=== PATIENT | female | born 1945 | race Caucasian/White ===

== ENCOUNTER 2021-08-06 08:24 | Inpatient (IN) | payer MEDICARE, SELFPAY ==
[2021-08-06] VITALS (11 sets, daily range): BP systolic 91–130; BP diastolic 50–67; PULSE 83–96; RESP 16–21; TEMP 36.2–36.6; O2SAT 91–100; BMI 19.1
--- NOTE | ~2021-08-06 | CT_ITS ---
EXAMINATION: CT chest abdomen pelvis w con EXAM DATE: 08/10/2021 09:19 INDICATION: Abnormal CT carotid brain findings including hypothalamic/optic chiasm brain mass, right tongue base mass, left lower lobe 1.3 cm nodule, necrotic thoracic lymphadenopathy and lower IJ lymph adenopathy, right ear lobe cystic mass. TECHNIQUE: Spiral CT of the chest, abdomen and pelvis was performed following intravenous injection o f 100 mL Omnipaque 350. Axial, coronal and sagittal images chest, abdomen and pelvis were reviewed. Coronal maximum intensity pixel images of chest reviewed. The dose-length product (DLP) for this ex amination was 348.04 mGy-cm. The exposure was tailored according to patient size (auto mA exposure c ontrol), and iterative reconstruction (ASIR) was used as additional dose reduction technique. There is no prior study for comparison. FINDINGS: CHEST: There is severe emphysema. There is a spiculated RIGHT upper lobe anterior segmental 6 mm nodu le. There is a 1.3 cm LEFT lower lobe superior segment pleural based lung nodule with spiculations, a ppearance most consistent with primary lung cancer. The 1.3 cm nodule abuts the descending thoracic a anuel, would not be candidate for percutaneous biopsy, and the 6 mm nodule is too small for biopsy. Th ere are numerous necrotic appearing enlarged lower internal jugular chain lymph nodes, mediastinal an d bilateral hilar lymph nodes consistent with metastatic disease. Similar-appearing cystic region in the right axilla could be lymph node or fluid within the shoulder joint. There are small bilateral pl eural effusions with adjacent subsegmental atelectasis. Some right lower lobe segmental endobronchial debris. No central pulmonary emboli. Hyperinflation. Normal heart size. ABDOMEN PELVIS: There is left adrenal mass probably metastatic disease measuring 2.0 cm. Ill-defined mesenteric and retroperitoneal fat planes, and suspicion of upper retroperitoneal lymphadenopathy. Al so mesenteric lymph nodes some of which are mildly enlarged and mildly dense. Liver, gallbladder, kid neys and spleen are unremarkable. No free intraperitoneal gas, small bowel or colonic obstruction. Th ere is colonic, rectal fluid. Correlate for diarrhea. Probable hysterectomy. Contrast within the blad christ. There are no osteoblastic or osteolytic lesions identified. IMPRESSION: 1. Right upper lobe 0.6 cm and left lower lobe 1.3 cm spiculated nodules. Either or both could be pr imary lung cancers. 2. Extensive mediastinal, hilar, lower internal jugular chain and possibly right axillary necrotic l ymphadenopathy. 3. Severe emphysema. Moderate hyperinflation. 4. Small pleural effusions, adjacent subsegmental atelectasis. 5. Small to moderate pericardial effusion. 6. Upper retroperitoneal, mesenteric lymphadenopathy. 7. Left adrenal mass. 8. Rectal fluid, diarrhea. 9. Right tongue base mass on yesterday's CT neck. Reviewed, dictated and finalized at location A. AINABLE AGRICULTURE SPECIALIST IMPRESSION: 1. Right upper lobe 0.6 cm and left lower lobe 1.3 cm spiculated nodules. Eith er or both could be primary lung cancers. 2. Extensive mediastinal, hilar, lower internal jugular chain and possibly rig ht axillary necrotic lymphadenopathy. 3. Severe emphysema. Moderate hyperinflation. 4. Small pleural effusions, adjacent subsegmental atelectasis. 5. Small to moderate pericardial effusion. 6. Upper retroperitoneal, mesenteric lymphadenopathy. 7. Left adrenal mass. 8. Rectal fluid, diarrhea. 9. Right tongue base mass on yesterday's CT neck.
--- NOTE | ~2021-08-06 | XR_ITS ---
EXAMINATION: XR chest 1V portable INDICATION: Cough, hypotension TECHNIQUE: Portable AP chest at 0844 hours COMPARISON: None available FINDINGS: There are minimal airspace opacities of the lung bases. A small right pleural effusion is p resent. There is no pneumothorax. The cardiomediastinal silhouette is normal. IMPRESSION: 1. Small right pleural effusion. 2. Bibasilar airspace opacities, consistent with atelectasis versus pneumonia. Reviewed, dictated and finalized at location A. ESTATE SALES ASSOCIATE
--- NOTE | ~2021-08-06 | US_ITS ---
EXAMINATION: US biopsy lymph node DATE: 08/11/2021 10:16 INDICATION: Right supraclavicular lymphadenopathy. TECHNIQUE: The procedure including the risks, benefits, and alternatives was discussed with the patie nt. Risks discussed included bleeding and infection. The patient understood the risks and agreed to p roceed. The skin overlying the right neck was prepped and draped in usual sterile fashion. Anestheti c was administered with 1% lidocaine subcutaneously. An 18 gauge core biopsy needle was then used to obtain 3 core biopsy specimens under continuous sonographic guidance. The entry site was cleaned and dressed. There were no immediate complications. FINDINGS: Ultrasound images demonstrate the needle in an enlarged right supraclavicular lymph node. IMPRESSION: 1. Ultrasound-guided core needle biopsy of an enlarged right supraclavicular lymph node. Reviewed, dictated and finalized at location A. F SERVICE DISPATCHER IMPRESSION: 1. Ultrasound-guided core needle biopsy of an enlarged right supraclavicular ly mph node.
--- NOTE | ~2021-08-06 | CT_ITS ---
EXAMINATION: CTA brain carotid EXAM DATE: 08/09/2021 14:41 INDICATION: Vision loss TECHNIQUE: Noncontrast head CT. Spiral CTA of the carotid arteries was performed with intravenous i njection 100 cc of Omnipaque 350. Axial, coronal, sagittal reformatted images reviewed. Additional r eformatted images created on dedicated 3-D workstation. NASCET comparable standard used to assess th e degree of arterial stenosis. Spiral CT angiogram cerebral arteries performed with the same intrave nous injection of contrast. Source images of the brain CTA transferred to dedicated workstation for 3 -D rotational image creation. Coronal, sagittal maximum intensity pixel images also reviewed. The d ose-length product (DLP) for this examination was 1667.68 mGy-cm. The exposure was tailored accordi ng to patient size, and iterative reconstruction (ASIR) was used as additional dose reduction techniq ue. FINDINGS: Low-density necrotic appearing bilateral hilar and mediastinal lymphadenopathy most likel y metastatic disease. Necrotic bilateral supraclavicular, lower internal jugular chain necrotic lymp hadenopathy. There is fluid density mass along the anterior aspect of the right ear lobe measuring 1. 6 cm there is enhancing mass in the midline suprasellar region probably involving the optic chiasm, m easuring about 1.6 cm. This is probably some kind of malignancy, density consistent with hypervascula r soft tissue rather than contrast within an aneurysm. This is extending posteriorly and touching the basilar tip. There is nonspecific symmetric low density within the internal capsular bilaterally, mo st likely something reactive from this suspected mass. Differential diagnosis includes metastatic dis ease, astrocytoma, embryonal carcinoma, teratoma, craniopharyngioma (doesn't appear to arise from torie la turcica). Probable small to moderate bilateral pleural effusions. There is moderate emphysema. There is mild to moderate bilateral carotid bulb arteriosclerosis with 0% stenosis bilaterally. The left vertebral ar adele is dominant. No vertebral or carotid dissection. Bilateral carotid siphon arterial sclerosis wit hout stenosis. No cerebral artery aneurysm suspected. No sagittal sinus thrombosis. Bilateral catarac t surgery. IMPRESSION: 1. Mediastinal, hilar, supraclavicular necrotic lymphadenopathy most likely metastatic disease. If t here is no known diagnosis, CT chest abdomen and pelvis with contrast is indicated. Cystic mass anter ior aspect right lobe. CT chest abdomen pelvis recommended. 2. 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 3. Symmetric bilateral internal capsule hypodensity probably reactive from the suprasellar mass abov e. 4. Bilateral carotid bulb 0% stenosis. Reviewed, dictated and finalized at location A. INESS PARAPROFESSIONAL IMPRESSION: 1. Mediastinal, hilar, supraclavicular necrotic lymphadenopathy most likely me tastatic disease. If there is no known diagnosis, CT chest abdomen and pelvis w ith contrast is indicated. Cystic mass anterior aspect right lobe. CT chest abd omen pelvis recommended. 2. 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 3. Symmetric bilateral internal capsule hypodensity probably reactive from the suprasellar mass above. 4. Bilateral carotid bulb 0% stenosis.
--- NOTE | 2021-08-06 08:33 | ECG_ITS ---
Measurements Intervals [place] Rate: 85 P: 60 [place]: 194 QRS: 34 QRSD: 98 T: 60 QT: 402 QTc: 480 Interpretive Statements SINUS RHYTHM LOW QRS VOLTAGE IN LIMB LEADS CANNOT RULE OUT SEPTAL INFARCT, AGE INDETERMINATE BORDERLINE ST-T WAVE ABNORMALITY- DIFFUSE LEADS ABNORMAL ECG Electronically Signed On 08-06-2021 8:58:46 MAGAZINE GRINDER LOADER by Miguel Nunez D.O.
--- NOTE | 2021-08-06 08:34 | ED.GENADULT ---
HPI - General Adult General Chief complaint: Unspecified Stated complaint: low blood sugar Time Seen by Provider: 08/06/21 08:29 Source: RN notes reviewed History of Present Illness HPI narrative: Patient presents emergency [facility] EMS for hypoglycemia. Per the facility this morning the patient had a blood sugar in the 30s she was given 1 mg of glucagon IM at that time and blood sugar decreased to 11 EMS was called that time they started IV line and give the patient an amp of D50 with improvement of blood sugars patient states she does not have a history of diabetes she states she is currently in the rehab center secondary recent below the knee amputation done at [facility] states she is chronically on 2 L nasal cannula has no other complaints at the Related Data Home Medications Medication Instructions Recorded Confirmed atorvastatin 20 mg PO HS 08/02/21 08/02/21 furosemide [Lasix] 20 mg PO DAILY 08/02/21 08/02/21 Allergies Allergy/AdvReac Type Severity Reaction Status Date / Time penicillin V Allergy Swelling Verified 07/21/21 19:53 Penicillins AdvReac Hives Verified 07/21/21 19:53 Review of Systems Review of Systems: Gen.: Denies fevers or chills ENT: Denies congestion Respiratory: Denies shortness of breath or cough CV: Denies chest pain or palpitations GI: Denies abdominal pain nausea, emesis or diarrhea denies burning, urgency, frequency or hematuria Musculoskeletal: Denies back pain or muscle pain Neuro: Denies numbness, tingling, weakness or focal weakness Skin: Denies rash Endocrine: Reports low blood sugar Except as documented, all other systems reviewed and negative [facility] Past Medical History Medical History (Updated 08/06/21 @ 13:40 by Gayla Qiu PA-C) Cardiomyopathy Chronic obstructive pulmonary disease Coronary artery disease Degenerative lumbar spinal stenosis History of myocardial infarction History of tobacco abuse Hypercholesterolemia Hypertension Peripheral vascular disease Surgical History Surgical History (Updated 07/21/21 @ 14:13 by Quin Bolden DO) S/P popliteal-distal bypass surgery Social History Social History (Updated 08/06/21 @ 13:41 by Gayla Qiu PA-C) Social History: The patient lives in her own trailer in [place]. She smoked approximately 1 pack of cigarettes a day and quit in 2020. No alcohol or illicit substance abuse. Surrogate decision maker: Code status: Full code. Exam Narrative: APPEARANCE: No acute distress, nontoxic, resting in bed EYES: EOMI HEENT: Normocephalic, atraumatic, OMM RESPIRATORY: No respiratory distress Clear to auscultation bilaterally with no rhonchi wheezing or rales. CARDIOVASCULAR: Regular rate and rhythm without murmurs rubs or gallops. ABDOMINAL: Soft, nontender, nondistended, no rebound or guarding MUSCULOSKELETAl: Moves all extremities. No clubbing, cyanosis or edema. NEURO: Awake and alert. Following commands, speech normal, no focal deficits SKIN:: Warm, dry. No rashes lesions or abrasions PSYCHIATRIC: Normal affect/mood, Course Course Emergency Course: Talked to facility there is no known history of the patient receiving any other patient's medication by accident Discussed with BRIGITTE Shukla for Dr Rodriguez presentation work-up agrees with admission at this time Discussed with patient and family results of workup and diagnosis. Discussed need for admission. Patient and family understand and agree to current treatment plan Vital Signs Vital signs: Vital Signs Temperature 97.2 F L 08/06/21 08:27 Pulse Rate 88 08/06/21 08:27 Respiratory Rate 18 08/06/21 08:27 Blood Pressure 91/58 L 08/06/21 08:27 Pulse Oximetry 97 08/06/21 08:27 Temperature 97.2 F L 08/06/21 08:27 Pulse Rate 86 08/06/21 11:55 Respiratory Rate 16 08/06/21 11:55 Blood Pressure 112/56 L 08/06/21 11:55 Pulse Oximetry 91 08/06/21 11:55 Medical Deci
[2021-08-06 08:36] LABS: Glucose Point of Care 125 mg/dl (65-105)
[2021-08-06 08:48] LABS: Basophils Absolute Auto 0.1 K/mm3 (0.0-0.1); Basophils Percent Auto 0.6 % (0.2-1.2); Eosinophils Absolute Auto 0.7 K/mm3 (0-0.3); Eosinophils Percent Auto 7.4 % (0-4.4); Hematocrit 29.2 % (37.0-47.0); Hemoglobin 9.5 g/dL (12.0-15.0); Immature Granulocyte Absolute 0.04 K/mm3 (0.00-0.031); Immature Granulocyte Percent A 0.5 % (0-0.5); Lymphocytes Absolute Auto 0.91 K/mm3 (0.9-3.2); Lymphocytes Percent Auto 10.4 % (18.3-44.2); Mean Corpuscular HGB Conc 32.5 g/dl (32-36); Mean Corpuscular Hemoglobin 28.8 pg (26-34); Mean Corpuscular Volume 88.5 fl (80-100); Mean Platelet Volume 9.4 fl (7.4-10.4); Monocytes Absolute Auto 0.7 K/mm3 (0.1-0.6); Monocytes Percent Auto 7.8 % (2.6-8.5); Neutrophils Absolute Auto 6.5 K/mm3 (1.3-6.7); Neutrophils Percent Auto 73.3 % (45.5-73.1); Platelet Count Result 381 k/mm3 (150-375); Red Cell Distribution Width 18.5 % (11.5-14.5); White Blood Count 8.8 K/mm3 (4.5-10.0)
[2021-08-06 08:56] LABS: Alanine Aminotransferase 13 U/L (4-35); Albumin Level 3.3 g/dL (3.5-5.1); Alkaline Phosphatase 115 U/L (38-126); Anion Gap 3 mmol/L (8-16); Aspartate Amino Transferase 44 U/L (14-36); Bilirubin,Total 0.6 mg/dL (0.2-1.3); Blood Urea Nitrogen 10 mg/dL (7-17); Carbon Dioxide 29 mmol/L (22-30); Chloride 97 mmol/L (98-107); Estimated CRCL calculation 65 ml/min; Estimated Glomerular Filt Rate > 60; Glucose 125 mg/dL (65-110); Potassium 3.8 mmol/L (3.4-5.0); Sodium 129 mmol/L (137-145)
[2021-08-06 10:01] LABS: Glucose Point of Care 95 mg/dl (65-105)
[2021-08-06] MEDS: SODIUM CHLORIDE 0.9% IV 500 ML 999 ML IV CONT (10:15)
[2021-08-06 12:26] LABS: Add Urine Microscopic? YES; Appearance Urine Clear (Clear); Bilirubin Urine Negative (Negative); Blood Urine Negative (Negative); Color Urine Yellow (Yellow); Glucose Urine UA Negative (Negative); Ketones Urine Trace mg/dL (Negative); Leukocyte Esterase Ur Negative LEU/UL (Negative); Mucus Urine Rare /lpf; Nitrate Urine Negative (Negative); Protein Urine Negative (Negative); RBC Urine 0-2 /hpf (0-2); Urobilinogen Urine Negative mg/dL (<2.0)
[2021-08-06 13:36] LABS: Glucose Point of Care 145 mg/dl (65-105)
[2021-08-06 13:38] LABS: Beta-Hydroxybutyrate/Acetoacetate 0.43 mmol/L (0.02-0.27)
--- NOTE | 2021-08-06 14:30 | PM.IMHP ---
H&P: HPI History of Present Illness Date/Time: 08/06/21 14:30 Chief Complaint: Unresponsive. Narrative: This is a pleasant 75-year-old female with coronary artery disease, congestive heart failure, hypertension, hyperlipidemia, chronic obstructive pulmonary disease, and peripheral vascular disease who presented to the emergency department today via EMS from [facility] for evaluation after she was found unresponsive this morning. She is at the rehab facility post left leg amputation earlier this month at [facility]. Has been participating in rehab but has had increasing phantom pain in the pain in the stump. Her gabapentin dose was increased a couple of days ago however due to grogginess her dose was decreased yesterday. She was apparently scheduled to be discharged today however she was found unresponsive this morning with a glucose of 11, reportedly. She was given IM glucagon 1 mg and 1 amp of IV dextrose per EMS. On arrival to the emergency department she was awake and alert however her glucose did drop to less than 20 and she received additional dextrose and was given something to eat with improvement in her glucose. Since that time her glucose has consistently been over 100 and she is feeling just fine. She is not a diabetic and has no history of hypoglycemia. Staff at the rehab facility have no documentation of possible medication errors. She reports eating and drinking as per usual though admits that her appetite has dropped off over the last couple of years since her . Review of Systems Review of Systems: 12 systems were reviewed. She denies fever, chills, and sweats. No headache or neck ache. No sinus congestion or sore throat. She has had a cough for a couple of months which initially was productive of clear sputum but is now greenish in color. She denies shortness of breath. No nausea, vomiting, diarrhea, or dysuria. Except as document, other systems were reviewed and are negative. [facility] Past Medical History Medical History (Updated 08/06/21 @ 19:11 by Gayla Qiu PA-C) Cardiomyopathy Chronic obstructive pulmonary disease Coronary artery disease Degenerative lumbar spinal stenosis History of myocardial infarction History of tobacco abuse Hypercholesterolemia Hypertension Peripheral vascular disease Surgical History Surgical History (Updated 08/06/21 @ 18:55 by Gayla Qiu PA-C) Femoral-popliteal bypass graft occlusion, left (06/2021) History of bilateral carpal tunnel release History of cataract extraction History of left below knee amputation (07/2021) History of partial hysterectomy History of repair of rotator cuff Bilateral History of tonsillectomy Family History Family History (Updated 08/06/21 @ 18:56 by aGyla Qiu PA-C) Other Heart disease Hypertension Social History Social History (Updated 08/06/21 @ 18:57 by Gayla Qiu PA-C) Social History: The patient lives in her own trailer in [place]. Her in January 2020. She has no children of her own. She smoked approximately 1 pack of cigarettes a day and quit in 2020. No alcohol or illicit substance abuse. Surrogate decision maker: Ad Wiley Jr (maria victoria). Code status: Full code. Meds Home Medications and Allergies Home Medications Medication Instructions Recorded Confirmed Type atorvastatin 20 mg PO HS 08/02/21 08/06/21 History furosemide [Lasix] 20 mg PO DAILY 08/02/21 08/06/21 History aspirin [Children's Aspirin] 81 mg PO DAILY@0800 #0 tablet 08/05/21 08/06/21 Rx clopidogrel 75 mg PO QAM #30 tablet 08/05/21 08/06/21 Rx gabapentin 100 mg PO BID #60 cap 08/05/21 08/06/21 Rx sodium chloride 1 g PO TIDWM #90 tablet 08/05/21 08/06/21 Rx Lactobacillus acidophilus 1 tablet PO DAILY 08/06/21 08/06/21 History calcium carbonate 200 mg PO Q2H PRN 08/06/21 08/06/21 History cyclobenzaprine 5 mg PO Q8H PRN 08/06/21 08/06/21 History enoxaparin [Lovenox] 40 mg SUBCUT DAILY
--- NOTE | 2021-08-06 16:13 | ADMIMU ---
This patient, Maricruz Wiley, was admitted to IMU status, and placed in IMU Room 214-01. Patient/family oriented to hospital policies and general routines including ID bracelet, bed and alarms, visiting hours, pain management, procedures, bathroom and other care routines, personal items, smoking policy, room service/diet, and visiting hours. Valuables list has been completed. Information on how to activate the Rapid Response Team has been discussed. Patient/Family are encouraged to report perceived risks to care and to ask questions if they do not understand what they are told or what they should do.
[2021-08-06 18:09] LABS: Glucose Point of Care 137 mg/dl (65-105)
[2021-08-06 20:23] LABS: Glucose Point of Care 102 mg/dl (65-105)
[2021-08-06] MEDS: DOXYCYCLINE 100 MG/NS 100 ML 100 MG/100 ML BAG IVPB (20:30)
[2021-08-06] MEDS: HYDROcodone/acetaminophen (*CRX) 5-325 MG TABLET 1 TAB PO (20:30)
[2021-08-06] MEDS: IPRATROPIUM BR 0.02% INH SOLN 0.5 MG/2.5 ML VIAL INHALATION (21:45)
[2021-08-06] MEDS: ALBUTEROL SULFATE NEB 2.5 MG/0.5 ML INH INHALATION (21:45)
[2021-08-06] MEDS: ATORVASTATIN 20 MG TABLET PO (22:34)
[2021-08-07] VITALS (23 sets, daily range): BP systolic 105–114; BP diastolic 47–60; PULSE 82–99; RESP 15–20; TEMP 36.6–38; O2SAT 88–97; BMI 19.1
[2021-08-07 04:48] LABS: Glucose Point of Care 174 mg/dl (65-105)
[2021-08-07 05:18] LABS: Hematocrit 27.2 % (37.0-47.0); Mean Corpuscular HGB Conc 33.1 g/dl (32-36); Mean Corpuscular Hemoglobin 29.3 pg (26-34); Mean Corpuscular Volume 88.6 fl (80-100); Mean Platelet Volume 9.3 fl (7.4-10.4); Platelet Count Result 354 k/mm3 (150-375); Red Blood Count 3.07 M/mm3 (4.2-5.4); Red Cell Distribution Width 17.8 % (11.5-14.5); White Blood Count 6.4 K/mm3 (4.5-10.0)
[2021-08-07 05:38] LABS: Anion Gap 3 mmol/L (8-16); Blood Urea Nitrogen 9 mg/dL (7-17); Carbon Dioxide 27 mmol/L (22-30); Chloride 98 mmol/L (98-107); Estimated CRCL calculation 80 ml/min; Estimated Glomerular Filt Rate > 60; Glucose 67 mg/dL (65-110); Magnesium 1.9 mg/dL (1.6-2.3); Potassium 4.3 mmol/L (3.4-5.0); Sodium 128 mmol/L (137-145)
[2021-08-07 06:22] LABS: Thyroid Stimulating Hormone Reflex 0.232 uIU/mL (0.465-4.68)
[2021-08-07 06:54] LABS: Free T4 Free Thyroxine Reflex 0.18 ng/dL (0.78-2.19)
[2021-08-07] MEDS: ALBUTEROL SULFATE NEB 2.5 MG/0.5 ML INH INHALATION ×4 (09:20→21:13)
[2021-08-07] MEDS: IPRATROPIUM BR 0.02% INH SOLN 0.5 MG/2.5 ML VIAL INHALATION ×4 (09:21→21:13)
[2021-08-07] MEDS: ASPIRIN 81 MG CHEWABLE TABLET PO (09:48)
[2021-08-07] MEDS: FUROSEMIDE 20 MG TABLET PO (09:48)
[2021-08-07] MEDS: DOXYCYCLINE 100 MG/NS 100 ML 100 MG/100 ML BAG IVPB ×2 (09:48→20:28)
[2021-08-07] MEDS: CLOPIDOGREL BISULFATE 75 MG TABLET PO (09:48)
[2021-08-07] MEDS: GABAPENTIN 100 MG CAPSULE PO ×2 (09:48→17:59)
[2021-08-07] MEDS: ACIDOPHILUS/BULGARICUS CHEWABLE TABLET 1 TABLET PO (09:48)
[2021-08-07] MEDS: SODIUM CHLORIDE 1 GM TABLET PO ×2 (09:49→17:59)
--- NOTE | 2021-08-07 10:31 | PM.IMPN ---
Progress Note: A&P Assessment and Plan (1) Unresponsiveness: Code(s): R41.89 - Other symptoms and signs involving cognitive functions and awareness Status: Acute Assessment and Plan: Found unresponsive 08/06/2021, at rehab post left leg amputation done at [facility]. Likely reason for unresponsiveness Increase in gabapentin and use of other sedated is/indication (2) Hypoglycemia: Code(s): E16.2 - Hypoglycemia, unspecified Status: Acute Assessment and Plan: Blood sugar level low at 11 she is not a diabetic Etiology not clear. Medication her possibility. Order hypoglycemia panel, insulin level pending C-peptide pending She is not toxic appearing and gives no history to suggest active infection. However chest x-ray shows atelectasis versus pneumonia and with her productive cough with purulent sputum, started her on empiric doxycycline. Since receiving glucagon and dextrose, her glucose has remained stable. Continue to monitor Accu-Cheks Will check cortisol level and ACTH recently treated with steroids be secondary adrenal cortical insufficiency however no hyperkalemia noted does have hyponatremia (3) Chronic obstructive pulmonary disease: Code(s): J44.9 - Chronic obstructive pulmonary disease, unspecified Status: Acute Assessment and Plan: No acute exam sedation. Continue as needed nebulizers. (4) Peripheral vascular disease: Code(s): I73.9 - Peripheral vascular disease, unspecified Status: Acute Assessment and Plan: She was admitted for colitis however noted to have fem-pop bypass graft occlusion and attempt at revascularization failed leading to left BKA on 07/2021 Status post left below the knee amputation as detailed above. Continue aspirin and clopidogrel. History of fem-pop bypass graft left 2001 (5) Hypertension: Code(s): I10 - Essential (primary) hypertension Status: Acute Assessment and Plan: Blood pressures were reviewed and they have been stable. Continue antihypertensives and monitor daily. (6) Cardiomyopathy: Code(s): I42.9 - Cardiomyopathy, unspecified Status: Acute Assessment and Plan: Clinically compensated. Avoid overhydration. (7) Abnormal chest x-ray: Code(s): R93.89 - Abnormal findings on diagnostic imaging of other specified body structures Status: Acute Assessment and Plan: Bibasilar atelectasis versus pneumonia. Given productive cough she has been started on doxycycline as detailed above. Sputum culture ordered. She has chronic cough likely related to her COPD. Recently she was treated with steroid that the [facility] as well along with antibiotics cefdinir Additional Plan Coronary artery disease Congestive heart failure Hyperlipidemia Lumbar spinal stenosis History of tobacco abuse Mild postoperative anemia stable counts Hyponatremia 128 acute on chronic mild typically 134 continue to monitor Subjective Date/time seen: 08/07/21 10:31 Interval history: HPI:This is a pleasant 75-year-old female with coronary artery disease, congestive heart failure, hypertension, hyperlipidemia, chronic obstructive pulmonary disease, and peripheral vascular disease who presented to the emergency department today via EMS from [facility] for evaluation after she was found unresponsive this morning. She is at the rehab facility post left leg amputation earlier this month at [facility]. Has been participating in rehab but has had increasing phantom pain in the pain in the stump. Her gabapentin dose was increased a couple of days ago however due to grogginess her dose was decreased yesterday. She was apparently scheduled to be discharged today however she was found unresponsive this morning with a glucose of 11, reportedly. She was given IM glucagon 1 mg and 1 amp of IV dextrose per EMS. On arrival to the emergency department she wa
[2021-08-07 12:16] LABS: Glucose Point of Care 74 mg/dl (65-105)
[2021-08-07 12:16] LABS: Glucose Point of Care 68 mg/dl (65-105)
[2021-08-07 12:42] LABS: Cortisol Baseline 3.15 ug/dL
[2021-08-07 13:08] LABS: Glucose Point of Care 101 mg/dl (65-105)
[2021-08-07 17:02] LABS: Glucose Point of Care 88 mg/dl (65-105)
[2021-08-07 17:02] LABS: Glucose Point of Care 97 mg/dl (65-105)
[2021-08-07 19:24] LABS: Glucose Point of Care 104 mg/dl (65-105)
[2021-08-07] MEDS: ATORVASTATIN 20 MG TABLET PO (20:28)
[2021-08-07 22:12] LABS: Glucose Point of Care 97 mg/dl (65-105)
[2021-08-08] VITALS (20 sets, daily range): BP systolic 104–133; BP diastolic 54–68; PULSE 82–96; RESP 15–20; TEMP 36.1–36.9; O2SAT 92–99
[2021-08-08] LABS: Glucose Point of Care 79 mg/dl (65-105)
[2021-08-08 02:21] LABS: Glucose Point of Care 92 mg/dl (65-105)
[2021-08-08 04:11] LABS: Glucose Point of Care 69 mg/dl (65-105)
--- NOTE | 2021-08-08 04:20 | PC.NURSE ---
Patient's blood glucose is 69, snack and juice given to patient.
[2021-08-08 04:35] LABS: Basophils Absolute Auto 0.1 K/mm3 (0.0-0.1); Basophils Percent Auto 0.8 % (0.2-1.2); Eosinophils Absolute Auto 0.5 K/mm3 (0-0.3); Eosinophils Percent Auto 8.5 % (0-4.4); Hematocrit 27.6 % (37.0-47.0); Hemoglobin 9.2 g/dL (12.0-15.0); Immature Granulocyte Absolute 0.01 K/mm3 (0.00-0.031); Immature Granulocyte Percent A 0.2 % (0-0.5); Lymphocytes Absolute Auto 1.12 K/mm3 (0.9-3.2); Lymphocytes Percent Auto 17.9 % (18.3-44.2); Mean Corpuscular HGB Conc 33.3 g/dl (32-36); Mean Corpuscular Hemoglobin 28.8 pg (26-34); Mean Corpuscular Volume 86.5 fl (80-100); Mean Platelet Volume 9.8 fl (7.4-10.4); Monocytes Absolute Auto 0.7 K/mm3 (0.1-0.6); Monocytes Percent Auto 10.4 % (2.6-8.5); Neutrophils Absolute Auto 3.9 K/mm3 (1.3-6.7); Neutrophils Percent Auto 62.2 % (45.5-73.1); Platelet Count Result 371 k/mm3 (150-375); Red Blood Count 3.19 M/mm3 (4.2-5.4); Red Cell Distribution Width 18.2 % (11.5-14.5); White Blood Count 6.3 K/mm3 (4.5-10.0)
[2021-08-08 05:00] LABS: Alanine Aminotransferase 12 U/L (4-35); Albumin Level 2.8 g/dL (3.5-5.1); Alkaline Phosphatase 127 U/L (38-126); Anion Gap 3 mmol/L (8-16); Aspartate Amino Transferase 40 U/L (14-36); Bilirubin,Total 0.4 mg/dL (0.2-1.3); Blood Urea Nitrogen 8 mg/dL (7-17); Calcium 8.1 mg/dL (8.4-10.2); Carbon Dioxide 28 mmol/L (22-30); Chloride 100 mmol/L (98-107); Estimated CRCL calculation 80 ml/min; Estimated Glomerular Filt Rate > 60; Glucose 66 mg/dL (65-110); Magnesium 1.7 mg/dL (1.6-2.3); Potassium 4.3 mmol/L (3.4-5.0); Sodium 131 mmol/L (137-145)
[2021-08-08 06:04] LABS: Glucose Point of Care 139 mg/dl (65-105)
[2021-08-08] MEDS: ALBUTEROL SULFATE NEB 2.5 MG/0.5 ML INH INHALATION ×4 (08:11→20:49)
[2021-08-08] MEDS: IPRATROPIUM BR 0.02% INH SOLN 0.5 MG/2.5 ML VIAL INHALATION ×4 (08:11→20:49)
[2021-08-08 08:48] LABS: Glucose Point of Care 79 mg/dl (65-105)
[2021-08-08] MEDS: ACIDOPHILUS/BULGARICUS CHEWABLE TABLET 1 TABLET PO (09:30)
[2021-08-08] MEDS: FUROSEMIDE 20 MG TABLET PO (09:30)
[2021-08-08] MEDS: SODIUM CHLORIDE 1 GM TABLET PO ×3 (09:30→17:53)
[2021-08-08] MEDS: CLOPIDOGREL BISULFATE 75 MG TABLET PO (09:30)
[2021-08-08] MEDS: ASPIRIN 81 MG CHEWABLE TABLET PO (09:30)
[2021-08-08] MEDS: GABAPENTIN 100 MG CAPSULE PO (09:30)
[2021-08-08] MEDS: DOXYCYCLINE 100 MG/NS 100 ML 100 MG/100 ML BAG IVPB ×2 (10:18→20:13)
[2021-08-08 10:28] LABS: Glucose Point of Care 111 mg/dl (65-105)
[2021-08-08 12:24] LABS: Glucose Point of Care 89 mg/dl (65-105)
--- NOTE | 2021-08-08 12:39 | PM.IMPN ---
Progress Note: A&P Assessment and Plan (1) Unresponsiveness: Code(s): R41.89 - Other symptoms and signs involving cognitive functions and awareness Status: Acute Assessment and Plan: Found unresponsive 08/06/2021, at rehab post left leg amputation done at [facility]. Likely reason for unresponsiveness Increase in gabapentin and use of other sedated is/indication (2) Hypoglycemia: Code(s): E16.2 - Hypoglycemia, unspecified Status: Acute Assessment and Plan: Blood sugar level low at 11 she is not a diabetic Etiology not clear. Medication her possibility. Order hypoglycemia panel, insulin level pending C-peptide pending She is not toxic appearing and gives no history to suggest active infection. However chest x-ray shows atelectasis versus pneumonia and with her productive cough with purulent sputum, started her on empiric doxycycline. Since receiving glucagon and dextrose, her glucose has remained stable. Continue to monitor Accu-Cheks Will check cortisol level and ACTH recently treated with steroids be secondary adrenal cortical insufficiency however no hyperkalemia noted does have hyponatremia (3) Chronic obstructive pulmonary disease: Code(s): J44.9 - Chronic obstructive pulmonary disease, unspecified Status: Acute Assessment and Plan: No acute exam sedation. Continue as needed nebulizers. 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 Continue aspirin and clopidogrel. History of fem-pop bypass graft left 2001 (5) Hypertension: Code(s): I10 - Essential (primary) hypertension Status: Acute Assessment and Plan: Blood pressures were reviewed and they have been stable. Continue antihypertensives and monitor daily. (6) Cardiomyopathy: Code(s): I42.9 - Cardiomyopathy, unspecified Status: Acute Assessment and Plan: Clinically compensated. Avoid overhydration. (7) Abnormal chest x-ray: Code(s): R93.89 - Abnormal findings on diagnostic imaging of other specified body structures Status: Acute Assessment and Plan: Bibasilar atelectasis versus pneumonia. Given productive cough she has been started on doxycycline as detailed above. Sputum culture ordered. She has chronic cough likely related to her COPD. Recently she was treated with steroid that the [facility] as well along with antibiotics cefdinir Additional Plan Coronary artery disease Congestive heart failure Hyperlipidemia Lumbar spinal stenosis History of tobacco abuse Mild postoperative anemia stable counts Hyponatremia 128 acute on chronic mild typically 134 continue to monitor. Sodium level has improved now. Cortisol level is low will p erform cosyntropin test. Acth is pending. TSH 0.232 which is low along with low free T4 possible secondary adrenocortical insufficiency due to chronic intermittent steroid use Subjective Date/time seen: 08/08/21 12:39 Interval history: HPI:This is a pleasant 75-year-old female with coronary artery disease, congestive heart failure, hypertension, hyperlipidemia, chronic obstructive pulmonary disease, and peripheral vascular disease who presented to the emergency department today via EMS from [facility] for evaluation after she was found unresponsive this morning. She is at the rehab facility post left leg amputation earlier this month at [facility]. Has been participating in rehab but has had increasing phantom pain in the pain in the stump. Her gabapentin dose was increased a couple of days ago however due to grogginess
[2021-08-08] MEDS: COSYNTROPIN 0.25 MG/ML VIAL IV PUSH (13:53)
[2021-08-08 14:00] LABS: Cortisol Baseline 3.24 ug/dL
[2021-08-08 16:56] LABS: Glucose Point of Care 113 mg/dl (65-105)
[2021-08-08 18:00] LABS: Glucose Point of Care 176 mg/dl (65-105)
[2021-08-08] MEDS: ATORVASTATIN 20 MG TABLET PO (20:13)
[2021-08-08 20:18] LABS: Glucose Point of Care 132 mg/dl (65-105)
[2021-08-09] VITALS (21 sets, daily range): BP systolic 127–139; BP diastolic 63–76; PULSE 82–95; RESP 16–24; TEMP 36.4–37; O2SAT 92–97
--- NOTE | 2021-08-09 | ECHO_ITS ---
Patient Info Name: Maricruz Wiley Age: 75 years : 1945 Gender: Female Ht: 64 in Wt: 118 lbs BSA: 1.55 m2 HR: 78 bpm BP: 130 / 63 mmHg Heart Rhythm: Sinus Rhythm Technical Quality: Fair Exam Date: 08/09/2021 2:01 PM Exam Location: [facility] Pulmonary Exam Room: 214 Patient Status: Inpatient Admit Date: 08/07/2021 Staff Ordering Physician: Daljit Lara MD Head Athletic Trainer/Strength Coach: Mariann Bob RDCS Attending Provider: Nacho Rodriguez MD Exam Type: CA echo doppler color flow Study Info Indications - thromboembolism cad chf copd Complete two-dimensional, color flow and Doppler transthoracic echocardiogram is performed. Summary 1. Complete two-dimensional, color flow and Doppler transthoracic echocardiogram is performed. 2. Left ventricular chamber dimension is normal. 3. Left ventricular systolic function is moderately reduced, estimated at 35-40%. 4. There is no increased left ventricular wall thickness. 5. The left ventricular diastolic function is abnormal. 6. The apex, inferior wall, anterior wall, inferoseptal wall, and anteroseptal wall are hypokinetic. 7. Right ventricular systolic function is reduced. 8. Left atrial chamber dimension is mildly enlarged. 9. There is mild mitral valve regurgitation. 10. There is mild tricuspid valve regurgitation. 11. There is small to moderate pericardial effusion. 12. Increased echogenicity noted on epicardial surface. Left Ventricle Left ventricular chamber dimension is normal. Left ventricular systolic function is moderately reduced, estimated at 35-40%. There is no increased left ventricular wall thickness. The left ventricular diastolic function is abnormal. The apex, inferior wall, anterior wall, inferoseptal wall, and anteroseptal wall are hypokinetic. All other dobson appear normal. Right Ventricle Right ventricular chamber dimension is normal. Right ventricular systolic function is reduced. Left Atria Left atrial chamber dimension is mildly enlarged. Right Atria Right atrial chamber dimension is normal. Atrial Septum Intact interatrial septum visualized by color flow imaging. Aortic Valve The aortic valve is trileaflet. There is moderate aortic valve sclerosis. There is no aortic valve stenosis. There is trace aortic valve regurgitation. Pulmonic Valve The pulmonic valve is normal. There is no pulmonic valve stenosis. There is trace pulmonic regurgitation. Mitral Valve The mitral valve has thickened leaflets. There is no mitral valve stenosis. There is mild mitral valve regurgitation. Tricuspid Valve The tricuspid valve leaflets are normal. There is no significant tricuspid valve stenosis. There is mild tricuspid valve regurgitation. No pulmonary hypertension, estimated pulmonary arterial systolic pressure is 28 mmHg. Pericardium/Pleural The pericardium appears normal. There is small to moderate pericardial effusion. Increased echogenicity noted on epicardial surface. Inferior Vena Cava Normal inferior vena cava with >50% collapse upon inspiration consistent with normal right atrial pressure, 10 mmHg. Aorta The aortic root size at the sinus of Valsalva is normal. Left Ventricular Outflow Tract Name Value Normal LVOT 2D
[2021-08-09 00:17] LABS: Glucose Point of Care 95 mg/dl (65-105)
[2021-08-09 02:05] LABS: Glucose Point of Care 152 mg/dl (65-105)
[2021-08-09 04:28] LABS: Glucose Point of Care 94 mg/dl (65-105)
[2021-08-09 04:49] LABS: Basophils Percent Auto 0.4 % (0.2-1.2); Eosinophils Absolute Auto 0.4 K/mm3 (0-0.3); Eosinophils Percent Auto 5.6 % (0-4.4); Hemoglobin 9.8 g/dL (12.0-15.0); Immature Granulocyte Absolute 0.02 K/mm3 (0.00-0.031); Immature Granulocyte Percent A 0.3 % (0-0.5); Lymphocytes Absolute Auto 1.01 K/mm3 (0.9-3.2); Lymphocytes Percent Auto 14.8 % (18.3-44.2); Mean Corpuscular HGB Conc 32.7 g/dl (32-36); Mean Corpuscular Hemoglobin 28.8 pg (26-34); Mean Corpuscular Volume 88.2 fl (80-100); Mean Platelet Volume 9.8 fl (7.4-10.4); Monocytes Absolute Auto 0.5 K/mm3 (0.1-0.6); Monocytes Percent Auto 6.9 % (2.6-8.5); Neutrophils Absolute Auto 4.9 K/mm3 (1.3-6.7); Platelet Count Result 386 k/mm3 (150-375); Red Cell Distribution Width 18.1 % (11.5-14.5); White Blood Count 6.8 K/mm3 (4.5-10.0)
[2021-08-09 05:04] LABS: Alanine Aminotransferase 13 U/L (4-35); Albumin Level 3.3 g/dL (3.5-5.1); Alkaline Phosphatase 126 U/L (38-126); Anion Gap 5 mmol/L (8-16); Aspartate Amino Transferase 43 U/L (14-36); Bilirubin,Total 0.2 mg/dL (0.2-1.3); Blood Urea Nitrogen 11 mg/dL (7-17); Calcium 8.5 mg/dL (8.4-10.2); Carbon Dioxide 29 mmol/L (22-30); Chloride 100 mmol/L (98-107); Estimated CRCL calculation 77 ml/min; Estimated Glomerular Filt Rate > 60; Glucose 87 mg/dL (65-110); Potassium 4.2 mmol/L (3.4-5.0); Sodium 134 mmol/L (137-145)
[2021-08-09 06:13] LABS: C-Peptide 0.22 ng/mL (0.80-3.85)
[2021-08-09 06:17] LABS: Glucose Point of Care 101 mg/dl (65-105)
[2021-08-09] MEDS: CLOPIDOGREL BISULFATE 75 MG TABLET PO (08:10)
[2021-08-09] MEDS: ASPIRIN 81 MG CHEWABLE TABLET PO (08:10)
[2021-08-09] MEDS: ACIDOPHILUS/BULGARICUS CHEWABLE TABLET 1 TABLET PO (08:10)
[2021-08-09] MEDS: SODIUM CHLORIDE 1 GM TABLET PO ×3 (08:10→17:27)
[2021-08-09] MEDS: FUROSEMIDE 20 MG TABLET PO (08:10)
[2021-08-09] MEDS: DOXYCYCLINE 100 MG/NS 100 ML 100 MG/100 ML BAG IVPB (08:14)
[2021-08-09 08:19] LABS: Glucose Point of Care 94 mg/dl (65-105)
[2021-08-09] MEDS: ALBUTEROL SULFATE NEB 2.5 MG/0.5 ML INH INHALATION ×3 (08:34→20:24)
[2021-08-09] MEDS: IPRATROPIUM BR 0.02% INH SOLN 0.5 MG/2.5 ML VIAL INHALATION ×3 (08:34→20:24)
--- NOTE | 2021-08-09 12:08 | PM.IMPN ---
Progress Note: A&P Assessment and Plan (1) Unresponsiveness: Code(s): R41.89 - Other symptoms and signs involving cognitive functions and awareness Status: Acute Assessment and Plan: Found unresponsive 08/06/2021, at rehab post left leg amputation done at [facility]. Likely reason for unresponsiveness Increase in gabapentin and use of other sedated is/indication (2) Hypoglycemia: Code(s): E16.2 - Hypoglycemia, unspecified Status: Acute Assessment and Plan: Blood sugar level low at 11 she is not a diabetic Etiology not clear. Medication her possibility. Order hypoglycemia panel, insulin level pending C-peptide pending She is not toxic appearing and gives no history to suggest active infection. However chest x-ray shows atelectasis versus pneumonia and with her productive cough with purulent sputum, started her on empiric doxycycline. Since receiving glucagon and dextrose, her glucose has remained stable. Continue to monitor Accu-Cheks Will check cortisol level and ACTH recently treated with steroids be secondary adrenal cortical insufficiency however no hyperkalemia noted does have hyponatremia C-peptide came back low beta hydroxybutyrate was elevated blood sugar has been stable noted after cosyntropin test her blood sugar raised all the way to 176. Cosyntropin test was positive suggestive of adrenal insufficiency likely secondary due to suppression hypothyroid pituitary adrenal axis from chronic intermittent steroid use. No reported iatrogenic insulin use from her med history and she has been in [place] rehabilitation for at least 2 weeks prior to this admission. Inadvertent insulin use is also seems less likely as her beta hydroxybutyrate level was elevated on admission (3) Chronic obstructive pulmonary disease: Code(s): J44.9 - Chronic obstructive pulmonary disease, unspecified Status: Acute Assessment and Plan: No acute exam sedation. Continue as needed nebulizers. 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 Continue aspirin and clopidogrel. History of fem-pop bypass graft left 2001 (5) Hypertension: Code(s): I10 - Essential (primary) hypertension Status: Acute Assessment and Plan: Blood pressures were reviewed and they have been stable. Continue antihypertensives and monitor daily. (6) Cardiomyopathy: Code(s): I42.9 - Cardiomyopathy, unspecified Status: Acute Assessment and Plan: Clinically compensated. Avoid overhydration. (7) Abnormal chest x-ray: Code(s): R93.89 - Abnormal findings on diagnostic imaging of other specified body structures Status: Acute Assessment and Plan: Bibasilar atelectasis versus pneumonia. Given productive cough she has been started on doxycycline as detailed above. Sputum culture ordered. She has chronic cough likely related to her COPD. Recently she was treated with steroid that the [facility] as well along with antibiotics cefdinir (8) Vision loss of left eye: Code(s): H54.62 - Unqualified visual loss, left eye, normal vision right eye Status: Acute Assessment and Plan: This is been noticed at least for past few week now. Ophthalmoscopic examination 08/09/2021 does not reveal any acute retinal pathology however not able to visualize completely due to my limited examination. No signs of keratitis or uveitis. She will need ophthalmology evaluation once discharged.? If related to severe hypoglycemia She did have findings of occluded left femoropopliteal bypass and isch
[2021-08-09 12:22] LABS: Glucose Point of Care 106 mg/dl (65-105)
[2021-08-09 14:21] LABS: Erythrocyte Sedimentation Rate > 140 mm/hr (0-20)
--- NOTE | 2021-08-09 14:55 | PCPTNOTE ---
attempted to see pt, but she was eating a late lunch due to being out for a test earlier.
[2021-08-09 16:11] LABS: Glucose Point of Care 101 mg/dl (65-105)
--- NOTE | 2021-08-09 17:45 | PCRCNOTE ---
Window of time for administration has passed. See next scheduled administration.
[2021-08-09] MEDS: DOXYCYCLINE HYCLATE 100 MG TABLET PO (20:36)
[2021-08-09] MEDS: ATORVASTATIN 20 MG TABLET PO (20:36)
[2021-08-09 20:54] LABS: Glucose Point of Care 97 mg/dl (65-105)
[2021-08-10] VITALS (22 sets, daily range): BP systolic 100–139; BP diastolic 60–93; PULSE 66–91; RESP 15–20; TEMP 36.1–36.9; O2SAT 94–99
[2021-08-10 00:02] LABS: Glucose Point of Care 110 mg/dl (65-105)
[2021-08-10 04:15] LABS: Glucose Point of Care 96 mg/dl (65-105)
[2021-08-10 04:40] LABS: Basophils Absolute Auto 0.1 K/mm3 (0.0-0.1); Eosinophils Absolute Auto 0.7 K/mm3 (0-0.3); Eosinophils Percent Auto 9.4 % (0-4.4); Hematocrit 30.9 % (37.0-47.0); Hemoglobin 10.3 g/dL (12.0-15.0); Immature Granulocyte Absolute 0.01 K/mm3 (0.00-0.031); Immature Granulocyte Percent A 0.1 % (0-0.5); Lymphocytes Percent Auto 18.8 % (18.3-44.2); Mean Corpuscular HGB Conc 33.3 g/dl (32-36); Mean Corpuscular Hemoglobin 28.8 pg (26-34); Mean Corpuscular Volume 86.3 fl (80-100); Mean Platelet Volume 9.5 fl (7.4-10.4); Monocytes Absolute Auto 0.6 K/mm3 (0.1-0.6); Monocytes Percent Auto 9.3 % (2.6-8.5); Neutrophils Absolute Auto 4.2 K/mm3 (1.3-6.7); Neutrophils Percent Auto 61.4 % (45.5-73.1); Platelet Count Result 420 k/mm3 (150-375); Red Blood Count 3.58 M/mm3 (4.2-5.4); White Blood Count 6.9 K/mm3 (4.5-10.0)
[2021-08-10 04:53] LABS: Anion Gap 5 mmol/L (8-16); Blood Urea Nitrogen 22 mg/dL (7-17); Calcium 8.7 mg/dL (8.4-10.2); Carbon Dioxide 32 mmol/L (22-30); Chloride 99 mmol/L (98-107); Estimated CRCL calculation 85 ml/min; Estimated Glomerular Filt Rate > 60; Glucose 84 mg/dL (65-110); Potassium 4.2 mmol/L (3.4-5.0); Sodium 136 mmol/L (137-145)
[2021-08-10] MEDS: ALBUTEROL SULFATE NEB 2.5 MG/0.5 ML INH INHALATION ×4 (08:18→20:31)
[2021-08-10] MEDS: IPRATROPIUM BR 0.02% INH SOLN 0.5 MG/2.5 ML VIAL INHALATION ×4 (08:18→20:31)
[2021-08-10] MEDS: CLOPIDOGREL BISULFATE 75 MG TABLET PO (08:35)
[2021-08-10] MEDS: ASPIRIN 81 MG CHEWABLE TABLET PO (08:35)
[2021-08-10] MEDS: SODIUM CHLORIDE 1 GM TABLET PO ×3 (08:35→17:27)
[2021-08-10] MEDS: DOXYCYCLINE HYCLATE 100 MG TABLET PO ×2 (08:35→21:29)
[2021-08-10] MEDS: ACIDOPHILUS/BULGARICUS CHEWABLE TABLET 1 TABLET PO (08:35)
[2021-08-10] MEDS: FUROSEMIDE 20 MG TABLET PO (08:35)
[2021-08-10 13:14] LABS: Glucose Point of Care 80 mg/dl (65-105)
[2021-08-10 13:14] LABS: Glucose Point of Care 129 mg/dl (65-105)
--- NOTE | 2021-08-10 13:40 | PCOTNOTE ---
Addendum entered by ARNOLD Garza 08/10/21 13:45: Therapy tx attempted was made at 13:41pm Original Note: Attempted to see pt for occupational therapy tx this PM, however pt states I don't feel good, I'm tired...my stomach hurts . Pt expresses she will try tomorrow and that she is sorry for not wanting to participate in therapy. Will continue per poc duration/frequency tomorrow.
--- NOTE | 2021-08-10 14:47 | PCPTNOTE ---
Attempted to see patient for physical therapy session, patient refused at this time due to feeling ill.
--- NOTE | 2021-08-10 15:00 | PM.IMPN ---
Progress Note: A&P Assessment and Plan (1) Unresponsiveness: Code(s): R41.89 - Other symptoms and signs involving cognitive functions and awareness Status: Acute Assessment and Plan: Found unresponsive 08/06/2021, at rehab post left leg amputation done at [facility]. Likely reason for unresponsiveness Increase in gabapentin and use of other sedated is/indication CT head and neck with couple different findings noted suggestive more of a metastatic lung cancer. Unclear etiology mass in the supra chiasmatic area. Consult neurology and morning for his opinion (2) Hypoglycemia: Code(s): E16.2 - Hypoglycemia, unspecified Status: Acute Assessment and Plan: Blood sugar level low at 11 she is not a diabetic Etiology not clear. Medication her possibility. Order hypoglycemia panel, insulin level pending C-peptide pending She is not toxic appearing and gives no history to suggest active infection. However chest x-ray shows atelectasis versus pneumonia and with her productive cough with purulent sputum, started her on empiric doxycycline. Since receiving glucagon and dextrose, her glucose has remained stable. Continue to monitor Accu-Cheks Will check cortisol level and ACTH recently treated with steroids be secondary adrenal cortical insufficiency however no hyperkalemia noted does have hyponatremia C-peptide came back low beta hydroxybutyrate was elevated blood sugar has been stable noted after cosyntropin test her blood sugar raised all the way to 176. Cosyntropin test was positive suggestive of adrenal insufficiency likely secondary due to suppression hypothyroid pituitary adrenal axis from chronic intermittent steroid use. No reported iatrogenic insulin use from her med history and she has been in [place] rehabilitation for at least 2 weeks prior to this admission. Inadvertent insulin use is also seems less likely as her beta hydroxybutyrate level was elevated on admission Her blood sugars are doing okay and within normal limit S. The there is possibility of secondary mild adrenal insufficiency with recent scans there are multiple other issues will continue to monitor her blood sugar for now and not place on any steroid therapy (3) Chronic obstructive pulmonary disease: Code(s): J44.9 - Chronic obstructive pulmonary disease, unspecified Status: Acute Assessment and Plan: No acute exam sedation. Continue as needed nebulizers. 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 Continue aspirin and clopidogrel. History of fem-pop bypass graft left 2001 (5) Hypertension: Code(s): I10 - Essential (primary) hypertension Status: Acute Assessment and Plan: Blood pressures were reviewed and they have been stable. Continue antihypertensives and monitor daily. (6) Cardiomyopathy: Code(s): I42.9 - Cardiomyopathy, unspecified Status: Acute Assessment and Plan: Clinically compensated. Avoid overhydration. (7) Abnormal chest x-ray: Code(s): R93.89 - Abnormal findings on diagnostic imaging of other specified body structures Status: Acute Assessment and Plan: Bibasilar atelectasis versus pneumonia. Given productive cough she has been started on doxycycline as detailed above. Sputum culture ordered. She has chronic cough likely related to her COPD. Recently she was treated with steroid that the [facility] as well along with antibiotics cefdinir CT chest abdomen pelvis with no pneumonia noted likely a cough is related to her underlying COPD and bronchitis
[2021-08-10 16:39] LABS: Glucose Point of Care 112 mg/dl (65-105)
[2021-08-10 20:26] LABS: Glucose Point of Care 87 mg/dl (65-105)
[2021-08-10] MEDS: ATORVASTATIN 20 MG TABLET PO (21:29)
[2021-08-11] VITALS (26 sets, daily range): BP systolic 106–139; BP diastolic 47–75; PULSE 75–118; RESP 16–20; TEMP 36.2–36.9; O2SAT 90–100
[2021-08-11] MEDS: HYDROcodone/acetaminophen (*CRX) 5-325 MG TABLET 1 TAB PO ×4 (01:10→23:50)
[2021-08-11 04:49] LABS: Basophils Absolute Auto 0.1 K/mm3 (0.0-0.1); Basophils Percent Auto 0.8 % (0.2-1.2); Eosinophils Absolute Auto 0.7 K/mm3 (0-0.3); Eosinophils Percent Auto 9.5 % (0-4.4); Hematocrit 30.7 % (37.0-47.0); Hemoglobin 9.9 g/dL (12.0-15.0); Immature Granulocyte Absolute 0.02 K/mm3 (0.00-0.031); Immature Granulocyte Percent A 0.3 % (0-0.5); Lymphocytes Absolute Auto 1.28 K/mm3 (0.9-3.2); Lymphocytes Percent Auto 17.9 % (18.3-44.2); Mean Corpuscular HGB Conc 32.2 g/dl (32-36); Mean Corpuscular Hemoglobin 28.9 pg (26-34); Mean Corpuscular Volume 89.8 fl (80-100); Mean Platelet Volume 9.4 fl (7.4-10.4); Monocytes Absolute Auto 0.8 K/mm3 (0.1-0.6); Monocytes Percent Auto 10.6 % (2.6-8.5); Neutrophils Absolute Auto 4.4 K/mm3 (1.3-6.7); Neutrophils Percent Auto 60.9 % (45.5-73.1); Platelet Count Result 374 k/mm3 (150-375); Red Blood Count 3.42 M/mm3 (4.2-5.4); Red Cell Distribution Width 18.4 % (11.5-14.5); White Blood Count 7.2 K/mm3 (4.5-10.0)
[2021-08-11 05:12] LABS: Alanine Aminotransferase 16 U/L (4-35); Albumin Level 3.3 g/dL (3.5-5.1); Alkaline Phosphatase 104 U/L (38-126); Anion Gap 4 mmol/L (8-16); Aspartate Amino Transferase 52 U/L (14-36); Bilirubin,Total 0.3 mg/dL (0.2-1.3); Blood Urea Nitrogen 20 mg/dL (7-17); Calcium 8.4 mg/dL (8.4-10.2); Carbon Dioxide 33 mmol/L (22-30); Chloride 98 mmol/L (98-107); Estimated CRCL calculation 70 ml/min; Estimated Glomerular Filt Rate > 60; Glucose 75 mg/dL (65-110); Potassium 3.7 mmol/L (3.4-5.0); Sodium 135 mmol/L (137-145)
[2021-08-11 06:32] LABS: Glucose Point of Care 102 mg/dl (65-105)
[2021-08-11] MEDS: ALBUTEROL SULFATE NEB 2.5 MG/0.5 ML INH INHALATION ×4 (08:10→21:10)
[2021-08-11] MEDS: IPRATROPIUM BR 0.02% INH SOLN 0.5 MG/2.5 ML VIAL INHALATION ×4 (08:10→21:10)
[2021-08-11 08:21] LABS: INR 1.1; Prothrombin Time 13.7 Seconds (11.1-14.7)
[2021-08-11 08:23] LABS: Glucose Point of Care 83 mg/dl (65-105)
[2021-08-11 11:47] LABS: Glucose Point of Care 162 mg/dl (65-105)
--- NOTE | 2021-08-11 12:14 | P.PNIM_ITS ---
Progress Note: A&P Assessment and Plan (1) Unresponsiveness: Code(s): R41.89 - Other symptoms and signs involving cognitive functions and awareness Status: Acute Assessment and Plan: Found unresponsive 08/06/2021, at rehab post left leg amputation done at [facility]. Likely reason for unresponsiveness Increase in gabapentin and use of other sedated is/indication CT head and neck with couple different findings noted suggestive more of a metastatic lung cancer. Unclear etiology mass in the supra chiasmatic area. Await Neurology evaluation. (2) Hypoglycemia: Code(s): E16.2 - Hypoglycemia, unspecified Status: Acute Assessment and Plan: Blood sugar level low at 11 she is not a diabetic Etiology not clear. Medication her possibility. Order hypoglycemia panel, insulin level pending C-peptide pending She is not toxic appearing and gives no history to suggest active infection. However chest x-ray shows atelectasis versus pneumonia and with her productive cough with purulent sputum, started her on empiric doxycycline. Since receiving glucagon and dextrose, her glucose has remained stable. Continue to monitor Accu-Cheks Will check cortisol level and ACTH recently treated with steroids be secondary adrenal cortical insufficiency however no hyperkalemia noted does have hyponatremia C-peptide came back low beta hydroxybutyrate was elevated blood sugar has been stable noted after cosyntropin test her blood sugar raised all the way to 176. Cosyntropin test was positive suggestive of adrenal insufficiency likely secondary due to suppression hypothyroid pituitary adrenal axis from chronic intermittent steroid use. No reported iatrogenic insulin use from her med history and she has been in [place] rehabilitation for at least 2 weeks prior to this admission. Inadvertent insulin use is also seems less likely as her bet a hydroxybutyrate level was elevated on admission Her blood sugars are doing okay and within normal limit S. The there is possibility of secondary mild adrenal insufficiency with recent scans there are multiple other issues will continue to monitor her blood sugar for now and not place on any steroid therapy She remains euglycemic (3) Chronic obstructive pulmonary disease: Code(s): J44.9 - Chronic obstructive pulmonary disease, unspecified Status: Acute Assessment and Plan: No acute exam sedation. Continue as needed nebulizers. 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 Continue aspirin and clopidogrel. History of fem-pop bypass graft left 2001 Wound care consult for ongoing wound from her recent left BKA and also has sacral decubitus ulcers which are not infected (5) Hypertension: Code(s): I10 - Essential (primary) hypertension Status: Acute Assessment and Plan: Blood pressures were reviewed and they have been stable. Continue antihypertensives and monitor daily. (6) Cardiomyopathy: Code(s): I42.9 - Cardiomyopathy, unspecified Status: Acute Assessment and Plan: Clinically compensated. Avoid overhydration. (7) Abnormal chest x-ray: Code(s): R93.89 - Abnormal findings on diagnostic imaging of other specified body structur
[2021-08-11] MEDS: ACIDOPHILUS/BULGARICUS CHEWABLE TABLET 1 TABLET PO (12:55)
[2021-08-11] MEDS: FUROSEMIDE 20 MG TABLET PO (12:55)
[2021-08-11] MEDS: DOXYCYCLINE HYCLATE 100 MG TABLET PO ×2 (12:55→20:31)
[2021-08-11] MEDS: SODIUM CHLORIDE 1 GM TABLET PO ×2 (12:56→17:29)
--- NOTE | 2021-08-11 12:58 | PM.PNGS ---
Progress Note: A&P Assessment and Plan (1) Tongue mass: Code(s): K14.8 - Other diseases of tongue Status: Acute Assessment and Plan: Will write formal consult note and see patient a.m. of . CT personally reviewed. Metastatic disease likely. Neck lymphadenopathy easy target for FNA, recommend fna of neck, tongue base will require operative biopsy. (2) Lymphadenopathy: Code(s): R59.1 - Generalized enlarged lymph nodes Status: Acute Subjective Subjective Date/Time Seen: 08/11/21 12:58 Objective Data Vital Signs Vital Signs: Vital Signs - 24 hr 08/10/21 13:39 08/10/21 13:47 08/10/21 14:00 Temperature Pulse Rate 80 87 91 Respiratory Rate 16 16 Blood Pressure Pulse Oximetry 08/10/21 16:00 08/10/21 16:28 08/10/21 18:00 Temperature 36.9 C Pulse Rate 88 82 74 Respiratory Rate 16 16 Blood Pressure 102/66 Pulse Oximetry 96 08/10/21 20:00 08/10/21 20:31 08/10/21 20:32 Temperature 36.5 C Pulse Rate 78 80 Respiratory Rate 16 16 Blood Pressure 121/73 Pulse Oximetry 97 97 08/10/21 20:41 08/10/21 22:00 08/10/21 23:23 Temperature 36.4 C Pulse Rate 78 85 89 Respiratory Rate 16 20 Blood Pressure 100/62 Pulse Oximetry 94 08/11/21 00:00 08/11/21 02:00 08/11/21 04:00 Temperature 36.6 C Pulse Rate 89 86 82 Respiratory Rate 20 20 Blood Pressure 106/73 Pulse Oximetry 94 94 08/11/21 06:00 08/11/21 08:00 08/11/21 08:10 Temperature Pulse Rate 80 75 77 Respiratory Rate 16 Blood Pressure Pulse Oximetry 08/11/21 08:12 08/11/21 08:19 08/11/21 08:45 Temperature 36.2 C L Pulse Rate 78 76 Respiratory Rate 16 16 Blood Pressure 125/70 Pulse Oximetry 91 95 08/11/21 10:00 08/11/21 11:54 08/11/21 12:03 Temperature Pulse Rate 86 80 86 Respiratory Rate 16 16 Blood Pressure Pulse Oximetry 08/11/21 12:38 Temperature 36.3 C L Pulse Rate 118 H Respiratory Rate 16 Blood Pressure 110/47 L Pulse Oximetry 100 Intake/Output Intake/Output: Intake & Output 08/08/21 08/09/21 08/10/21 08/11/21 23:59 23:59 23:59 23:59 Intake Total 697 546 8337 870 Output Total 5731 608 2602 650 Balance -150 300 -600 220 Meds/Results Medications: Active Medications Generic Name Dose Route Start Last Admin Trade Name Freq PRN Reason Stop Dose Admin Hydrocodone Bitart/Acetaminophen 1 tab 08/06/21 19:11 08/11/21 02:00 Hydrocodone/Acetaminophen (*Crx) 5-325 Mg Tablet PO 1 tab Q4H PRN Administration Pain Rated 4-6 Hydrocodone Bitart/Acetaminophen 2 tab 08/06/21 19:11 Hydrocodone/Acetaminophen (*Crx) 5-325 Mg Tablet PO Q4H PRN Pain (Scale Score 7-10) Albuterol 2.5 mg 08/06/21 20:00 08/11/21 11:53 Albuterol Sulfate Neb 2.5 Mg/0.5 Ml Inh INHALATION 2.5 mg QIDRT LINDA Administration Aspirin 81 mg 08/07/21 08:00 08/11/21 12:51 Aspirin 81 Mg Chewable Tablet PO Not Given DAILY@0800 [facility] Atorvastatin Calcium 20 mg 08/06/21 21:00 08/10/21 21:29 Atorvastatin 20 Mg Tablet PO 20 mg HS LINDA Administration Calcium Carbonate 200 mg 08/06/21 19:11 Calcium Carbonate (Tums) 500 Mg (200 Mg Elemental) PO Q2H PRN Indigestion Clopidogrel Bisulfate 75 mg 08/07/21 09:00 08/11/21 12:51 Clopidogrel Bisulfate 75 Mg Tablet PO Not Given QAM LINDA Cyclobenzaprine HCl 5 mg 08/06/21 19:11 Cyclobenzaprine Hcl 5 Mg Tablet PO Q8H PRN muscle spasms Dextrose 12.5 gm 08/08/21 22:24 Dextrose 50% 25 Gm/50 Ml Syringe IV PUSH PRN PRN Hypoglycemia Protocol Doxycycline Hyclate 100 mg 08/09/21 21:00 08/11/21 12:55 Doxycycline Hyclate 100 Mg Tablet PO 100 mg Q12HR LINDA Administration Furosemide 20 mg 08/07/21 09:00 08/11/21 12:55 Furosemide 20 Mg Tablet PO 20 mg DAILY LINDA Administration Gabapentin 100 mg 08/07/21 09:00 08/08/21 09:30 Gabapentin 100 Mg Capsule PO 100 mg BID LINDA Administration
--- NOTE | 2021-08-11 13:35 | PC.NURSE ---
Contacted Dr. Pacheco office at [phone] regarding pt LLE BKA wound care. Waiting for response.
[2021-08-11 16:19] LABS: Glucose Point of Care 111 mg/dl (65-105)
--- NOTE | 2021-08-11 18:37 | PDONCCN ---
HPI - Date of Consult Date/Time: 08/11/21 18:37 Requesting Physician: Phill Rodriguez MD Primary Care Provider: Live Madden, - Consult Narrative Reason for consult: Metastatic cancer Narrative: Maricruz Wiley is a 75 year old female with history of peripheral vascular disease, and coronary artery disease, congestive heart failure, hypertension, COPD and smoking came into the hospital after being found unresponsive. She was at the rehab facility status post left leg amputation earlier this month at [facility]. She was found to be hypoglycemic and received glucagon. CT scan of head and neck showed 1.3 cm right lower lobe mass could be lung cancer metastatic disease as well as soft tissue nodule at the right tongue base. There was mediastinal, hilar, supraclavicular lymphadenopathy. Patient had ultrasound-guided biopsy of right supraclavicular lymph node done. CT abdomen also showed left adrenal mass as well as upper retroperitoneal and mesenteric lymphadenopathy and small pleural effusion. She denies any previous history of malignancy. He has lost weight. Denies any hemoptysis. No headaches and seizures. Review of Systems - Review of Systems All systems reviewed & are unremarkable except as noted in HPI and [facility] Medical History: Medical History (Last Updated 08/06/21 @ 18:55 by Gayla Qiu PA-C) Cardiomyopathy Chronic obstructive pulmonary disease Coronary artery disease Degenerative lumbar spinal stenosis History of myocardial infarction History of tobacco abuse Hypercholesterolemia Hypertension Peripheral vascular disease Surgical History: Surgical History (Last Updated 08/06/21 @ 18:55 by Gayla Qiu PA-C) Femoral-popliteal bypass graft occlusion, left Onset Date: 06/2021 History of bilateral carpal tunnel release History of cataract extraction History of left below knee amputation Onset Date: 07/2021 History of partial hysterectomy History of repair of rotator cuff Bilateral History of tonsillectomy Family History: Family History (Last Updated 08/06/21 @ 18:56 by Gayla Qiu PA-C) Other Heart disease Hypertension - Social History Social History: Social History (Last Updated 08/06/21 @ 18:57 by Gayla Qiu PA-C) Others: Spiritual care concerns: No Meds Home Medications Medication Instructions Recorded Confirmed Type atorvastatin 20 mg PO HS 08/02/21 08/06/21 History furosemide [Lasix] 20 mg PO DAILY 08/02/21 08/06/21 History aspirin [Children's Aspirin] 81 mg PO DAILY@0800 #0 tablet 08/05/21 08/06/21 Rx clopidogrel 75 mg PO QAM #30 tablet 08/05/21 08/06/21 Rx gabapentin 100 mg PO BID #60 cap 08/05/21 08/06/21 Rx sodium chloride 1 g PO TIDWM #90 tablet 08/05/21 08/06/21 Rx Lactobacillus acidophilus 1 tablet PO DAILY 08/06/21 08/06/21 History calcium carbonate 200 mg PO Q2H PRN 08/06/21 08/06/21 History cyclobenzaprine 5 mg PO Q8H PRN 08/06/21 08/06/21 History enoxaparin [Lovenox] 40 mg SUBCUT DAILY 08/06/21 08/06/21 History hydrocodone-acetaminophen 1 tablet PO Q4H PRN 08/06/21 08/06/21 History hydrocodone-acetaminophen 2 tablet PO Q4H PRN 08/06/21 08/06/21 History ipratropium-albuterol 3 ml INHALATION QID 08/06/21 08/06/21 History loperamide 2 mg PO QID PRN 08/06/21 08/06/21 History melatonin 3 mg PO HS PRN 08/06/21 08/06/21 History ondansetron 4 mg PO Q6H PRN 08/06/21 08/06/21 History Allergies Allergy/AdvReac Type Severity Reaction Status Date / Time penicillin V Allergy Swelling Verified 07/21/21 19:53 Penicillins AdvReac Hives Verified 07/21/21 19:53 Results - Labs CBC & Chem 7: 08/11/21 04:39 08/11/21 04:39 Labs: Short CBC 08/11/21 Range/Units 04:39 WBC 7.2 (4.5-10.0) K/mm3 Hgb 9.9 L (12.0-15.0) g/dL Hct 30.7 L (37.0-47.0) % Plt Count 374 (150-375) k/mm3 BMP 08/11/21 04:39 Sodium 135 L Potassium 3.7 Chloride 98 Carbon Dioxide 33
[2021-08-11 19:33] LABS: Lactate Dehydrogenase 688 U/L (313-618)
[2021-08-11 19:53] LABS: Iron 35 ug/dL (37-170)
[2021-08-11 20:02] LABS: Percent Iron Saturation 14 % (20-50)
[2021-08-11 20:12] LABS: Glucose Point of Care 106 mg/dl (65-105)
[2021-08-11] MEDS: ATORVASTATIN 20 MG TABLET PO (20:31)
[2021-08-11 20:42] LABS: Folic Acid 9.1 ng/mL (2.76->20)
[2021-08-11 23:35] LABS: Glucose Point of Care 92 mg/dl (65-105)
[2021-08-12] VITALS (19 sets, daily range): BP systolic 125–133; BP diastolic 59–80; PULSE 73–94; RESP 16–20; TEMP 35.2–36.6; O2SAT 62–100
[2021-08-12 03:02] LABS: Adrenocorticotropic Hormone 6 pg/mL (6-50)
[2021-08-12 05:22] LABS: Basophils Absolute Auto 0.1 K/mm3 (0.0-0.1); Basophils Percent Auto 1.6 % (0.2-1.2); Eosinophils Absolute Auto 0.7 K/mm3 (0-0.3); Eosinophils Percent Auto 9.9 % (0-4.4); Hematocrit 31.1 % (37.0-47.0); Immature Granulocyte Absolute 0.02 K/mm3 (0.00-0.031); Immature Granulocyte Percent A 0.3 % (0-0.5); Lymphocytes Percent Auto 21.2 % (18.3-44.2); Mean Corpuscular HGB Conc 32.2 g/dl (32-36); Mean Corpuscular Hemoglobin 28.9 pg (26-34); Mean Corpuscular Volume 89.9 fl (80-100); Mean Platelet Volume 9.9 fl (7.4-10.4); Monocytes Absolute Auto 0.7 K/mm3 (0.1-0.6); Monocytes Percent Auto 9.2 % (2.6-8.5); Neutrophils Absolute Auto 4.1 K/mm3 (1.3-6.7); Neutrophils Percent Auto 57.8 % (45.5-73.1); Platelet Count Result 416 k/mm3 (150-375); Red Blood Count 3.46 M/mm3 (4.2-5.4); Red Cell Distribution Width 18.2 % (11.5-14.5); White Blood Count 7.1 K/mm3 (4.5-10.0)
[2021-08-12 05:33] LABS: Insulin Level Total <1.0 uIU/mL (<=19.6)
[2021-08-12 05:46] LABS: Anion Gap 3 mmol/L (8-16); Blood Urea Nitrogen 31 mg/dL (7-17); Calcium 8.7 mg/dL (8.4-10.2); Carbon Dioxide 36 mmol/L (22-30); Chloride 97 mmol/L (98-107); Estimated CRCL calculation 70 ml/min; Estimated Glomerular Filt Rate > 60; Glucose 79 mg/dL (65-110); Potassium 4.8 mmol/L (3.4-5.0); Sodium 136 mmol/L (137-145)
[2021-08-12] MEDS: ALBUTEROL SULFATE NEB 2.5 MG/0.5 ML INH INHALATION ×3 (08:07→19:52)
[2021-08-12] MEDS: IPRATROPIUM BR 0.02% INH SOLN 0.5 MG/2.5 ML VIAL INHALATION ×3 (08:07→19:52)
[2021-08-12 08:43] LABS: Glucose Point of Care 88 mg/dl (65-105)
[2021-08-12] MEDS: ASPIRIN 81 MG CHEWABLE TABLET PO (09:05)
[2021-08-12] MEDS: CLOPIDOGREL BISULFATE 75 MG TABLET PO (09:06)
[2021-08-12] MEDS: FUROSEMIDE 20 MG TABLET PO (09:06)
[2021-08-12] MEDS: DOXYCYCLINE HYCLATE 100 MG TABLET PO ×2 (09:06→20:13)
[2021-08-12] MEDS: SODIUM CHLORIDE 1 GM TABLET PO ×3 (09:06→17:35)
[2021-08-12] MEDS: ACIDOPHILUS/BULGARICUS CHEWABLE TABLET 1 TABLET PO (09:07)
--- NOTE | 2021-08-12 10:43 | PCOTNOTE ---
Attempted to see patient at 10:36am this date. Pt. refused OT this date having just been put on O2 and feeling SOB. Nursing aware. Continue per POC.
--- NOTE | 2021-08-12 10:56 | PCNFU ---
Nutrition Follow-Up Complete: Increased protein needs as related to wounds as evidenced by stage III PU saccurm goal: Adequate Intake of at least 75% of meals/supplements Patient has limited progress towards goal. We will continue current goal. Pt current nutrition is Regular with Hector BID and Ensure Compact BID. Last recorded weight is 54 kg, up from 50.4 kg on admit. Bowel Motility:+BM reported 08/12 Labs Reviewed:Na 136, BUN 31, Cr 0.5, Hct 31.1,Hgb 10.0 Meds Noted:[place],Lasix, Plavix, Atrovent. Skin: Stage III PU-saccum. Additional Notes: Patient seen for nutrition follow up. Breakfast tray had very little eaten. Patient states she was feeling short of breath, was unable to eat or drink anything at this time. Spoke with nursing about patients symptoms. Diet order is Regular with Ensure Compact BID. Protein Modular of Hector BID given for wound healing. Agree with diet orders. Monitoring: RD will monitor every 5 days.
--- NOTE | 2021-08-12 12:40 | WPDCN ---
Assessment and Plan Assessment and plan (1) Tongue mass: Code(s): K14.8 - Other diseases of tongue Status: Acute Assessment and Plan: All the lesions likely related likely metastatic disease of sort. Flexible laryngoscopy out relatively benign other than some nasal crusting. The patient will benefit from nasal saline spray throughout the day some mupirocin ointment anteriorly. Other that we can follow-up on the FNA performed today. If it shows to be a squamous cell carcinoma we can re-evaluate to see if it is tongue base in etiology. That being said it is unlikely that many of the lesions are squamous cell such as the intracranial an adrenal lesions. (2) Lymphadenopathy: Code(s): R59.1 - Generalized enlarged lymph nodes Status: Acute HPI Data of Consult Date/Time: 08/12/21 12:40 Requesting Physician: Phill Rodriguez MD Primary Care Provider: Live Madden, Consult Narrative Narrative: Maricruz Wiley is a 75 year old female With multiple lesions seen in the lungs neck base of tongue in suprasellar region. ENT consult because base of tongue lesion. Patient reports largely been asymptomatic other than some difficulty breathing in wonders how she had all these lesions in her body. [facility] Past Medical History Medical History (Updated 08/11/21 @ 18:43 by Stuart Owen MD) Cardiomyopathy Chronic obstructive pulmonary disease Coronary artery disease Degenerative lumbar spinal stenosis History of myocardial infarction History of tobacco abuse Hypercholesterolemia Hypertension Peripheral vascular disease Surgical History Surgical History (Updated 08/11/21 @ 18:43 by Stuart Owen MD) Femoral-popliteal bypass graft occlusion, left (06/2021) History of bilateral carpal tunnel release History of cataract extraction History of left below knee amputation (07/2021) History of partial hysterectomy History of repair of rotator cuff Bilateral History of tonsillectomy Family History Family History (Updated 08/06/21 @ 18:56 by Gayla Qiu PA-C) Other Heart disease Hypertension Social History Social History (Updated 08/06/21 @ 18:57 by Gayla Qiu PA-C) Social History: The patient lives in her own trailer in [place]. Her in January 2020. She has no children of her own. She smoked approximately 1 pack of cigarettes a day and quit in 2020. No alcohol or illicit substance abuse. Surrogate decision maker: Ad Wiley Jr (rianna). Code status: Full code. Spiritual care concerns: No Meds Home Medications and Allergies Home Medications Medication Instructions Recorded Confirmed Type atorvastatin 20 mg PO HS 08/02/21 08/06/21 History furosemide [Lasix] 20 mg PO DAILY 08/02/21 08/06/21 History aspirin [Children's Aspirin] 81 mg PO DAILY@0800 #0 tablet 08/05/21 08/06/21 Rx clopidogrel 75 mg PO QAM #30 tablet 08/05/21 08/06/21 Rx gabapentin 100 mg PO BID #60 cap 08/05/21 08/06/21 Rx sodium chloride 1 g PO TIDWM #90 tablet 08/05/21 08/06/21 Rx Lactobacillus acidophilus 1 tablet PO DAILY 08/06/21 08/06/21 History calcium carbonate 200 mg PO Q2H PRN 08/06/21 08/06/21 History cyclobenzaprine 5 mg PO Q8H PRN 08/06/21 08/06/21 History enoxaparin [Lovenox] 40 mg SUBCUT DAILY 08/06/21 08/06/21 History hydrocodone-acetaminophen 1 tablet PO Q4H PRN 08/06/21 08/06/21 History hydrocodone-acetaminophen 2 tablet PO Q4H PRN 08/06/21 08/06/21 History ipratropium-albuterol 3 ml INHALATION QID 08/06/21 08/06/21 History loperamide 2 mg PO QID PRN 08/06/21 08/06/21 History melatonin 3 mg PO HS PRN 08/06/21 08/06/21 History ondansetron 4 mg PO Q6H PRN 08/06/21 08/06/21 History Allergies Allergy/AdvReac Type Severity Reaction Status Date / Time penicillin V Allergy Swelling Verified 07/21/21 19:53 Penicillins AdvReac Hives Verified 07/21/21 19:53 Vital Signs Vital Signs - 24 hr 08/11/21 14:00 08/11/21 16:00 08/11/21 16:35 Te
[2021-08-12] MEDS: HYDROcodone/acetaminophen (*CRX) 5-325 MG TABLET 1 TAB PO (12:50)
[2021-08-12 13:21] LABS: Glucose Point of Care 75 mg/dl (65-105)
--- NOTE | 2021-08-12 14:06 | PC.NURSE ---
1030-Ananya, medical anthropology director from Dr. Pacheco's office called and informed RN that aiden could be removed from left BKA site, and apply drsg of gauze and eric wrap. 1100-Dr. Jones on unit and spoke with him regarding staple removal and drsg change. Order received. 1200-All aiden from BKA site were removed. Area cleaned and dressed with 4x4 and eric wrap. Gave pt. 1 norco for pain in BKA area with staple removal. New mepilex applied to coccyx.
--- NOTE | 2021-08-12 15:07 | WPDNEURCNPN ---
Consult date: 08/12/21 HPI: Maricruz Wiley is a 75 year old female admitted to the hospital on August 06, 2021 for being unresponsive in addition to the ongoing history of 1. Coronary artery disease 2. Congestive heart failure 3. Hypertension 4. Hyperlipidemia 5. Chronic obstructive pulmonary disease and 6. Peripheral vascular disease she was [facility] after she was found unresponsive in the morning where she had been for the post left lower extremity amputation at [facility] she had increasing phantom pain her gabapentin was increased couple of days prior to the transfer here but she complained of grogginess she was supposed to be discharged on the day of admission to the acute hospital but she was unfortunately found unresponsive in the morning with a glucose of only 11 when she received IM glucagon own and 1 ampule of IV dextrose per EMS and by the time she came to the emergency room on the acute side she was awake alert and she received additional dextrose because the blood sugar dropping down to 20 she had been eating and drinking as usual, past history consistent with cardio cardiomyopathy, as well in addition to tobacco abuse and peripheral vascular disease, has undergone femoral-popliteal bypass graft occlusion on the left in June of 2021 in addition to bilateral carpal tunnel release cataract extraction left lower extremity [id number] amputation and partial hysterectomy repair of the rotator cuff bilaterally she lives in her own trailer in [facility] an outpatient medications do include atorvastatin furosemide aspirin clopidogrel gabapentin hydrocodone, her echocardiogram has documented left ventricle systolic function moderately reduced to 35 to 40% and she is hypokinetic apex inferior wall anterior wall inferoseptal wall anteroseptal wall in addition to reduce right ventricular systolic function and mildly enlarged left atrial chamber with mild regurgitation as well, her chest x-ray documented small right pleural effusion, she has been found to have mediastinal hilar supraclavicular necrotic lymphadenopathy most likely metastatic disease, she has also been noted to have the tongue mass, she has also been seen by the oncologist with the documentation of metastatic head and neck lung cancer Review of Systems Review of Systems: All systems reviewed & are unremarkable except as noted in HPI and below PMFSH Past Medical History Medical History Cardiomyopathy Chronic obstructive pulmonary disease Coronary artery disease Degenerative lumbar spinal stenosis History of myocardial infarction History of tobacco abuse Hypercholesterolemia Hypertension Peripheral vascular disease Surgical History Surgical History Femoral-popliteal bypass graft occlusion, left (06/2021) History of bilateral carpal tunnel release History of cataract extraction History of left below knee amputation (07/2021) History of partial hysterectomy History of repair of rotator cuff Bilateral History of tonsillectomy Family History Family History Other Heart disease Hypertension Social History Social History Social History: The patient lives in her own trailer in [place]. Her in January 2020. She has no children of her own. She smoked approximately 1 pack of cigarettes a day and quit in 2020. No alcohol or illicit substance abuse. Surrogate decision maker: Ad Wiley Jr ([facility]). Code status: Full code. Spiritual care concerns: No Meds Home Medications and Allergies Home Medications Medication Instructions Recorded Confirmed Type atorvastatin 20 mg PO HS 08/02/21 08/06/21 History furosemide [Lasix] 20 mg PO DAILY 08/02/21 08/06/21 History aspirin [Children's Aspirin] 81 mg PO DONIS
--- NOTE | 2021-08-12 15:42 | PC.NURSE ---
1500-informed pt and pt's son (who is at bedside), about transfer to [facility]. 1520-report called to Ena on medical.
--- NOTE | 2021-08-12 15:48 | PCPTNOTE ---
Attempted to see patient for PT, however per RN patient is transferring rooms.
--- NOTE | 2021-08-12 15:49 | PC.NURSE ---
1545-pt transported via bed to [facility]. pt belongings with pt during transport.
[2021-08-12 16:30] LABS: Glucose Point of Care 79 mg/dl (65-105)
--- NOTE | 2021-08-12 18:11 | PM.IMPN ---
Progress Note: A&P Assessment and Plan (1) Unresponsiveness: Code(s): R41.89 - Other symptoms and signs involving cognitive functions and awareness Status: Acute Assessment and Plan: Found unresponsive 08/06/2021, at rehab post left leg amputation done at [facility]. Likely reason for unresponsiveness Increase in gabapentin and use of other sedated is/indication CT head and neck with couple different findings noted suggestive more of a metastatic lung cancer. Unclear etiology mass in the supra chiasmatic area. Await Neurology evaluation. (2) Hypoglycemia: Code(s): E16.2 - Hypoglycemia, unspecified Status: Acute Assessment and Plan: Blood sugar level low at 11 she is not a diabetic Etiology not clear. Medication her possibility. Order hypoglycemia panel, insulin level pending C-peptide pending She is not toxic appearing and gives no history to suggest active infection. However chest x-ray shows atelectasis versus pneumonia and with her productive cough with purulent sputum, started her on empiric doxycycline. Since receiving glucagon and dextrose, her glucose has remained stable. Continue to monitor Accu-Cheks Will check cortisol level and ACTH recently treated with steroids be secondary adrenal cortical insufficiency however no hyperkalemia noted does have hyponatremia C-peptide came back low beta hydroxybutyrate was elevated blood sugar has been stable noted after cosyntropin test her blood sugar raised all the way to 176. Cosyntropin test was positive suggestive of adrenal insufficiency likely secondary due to suppression hypothyroid pituitary adrenal axis from chronic intermittent steroid use. No reported iatrogenic insulin use from her med history and she has been in [place] for at least 2 weeks prior to this admission. Inadvertent insulin use is also seems less likely as her beta hydroxybutyrate level was elevated on admission Her blood sugars are doing okay and within normal limit S. The there is possibility of secondary mild adrenal insufficiency with recent scans there are multiple other issues will continue to monitor her blood sugar for now and not place on any steroid therapy She remains euglycemic (3) Chronic obstructive pulmonary disease: Code(s): J44.9 - Chronic obstructive pulmonary disease, unspecified Status: Acute Assessment and Plan: No acute exam sedation. Continue as needed nebulizers. 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 Continue aspirin and clopidogrel. History of fem-pop bypass graft left 2001 Wound care consult for ongoing wound from her recent left BKA and also has sacral decubitus ulcers which are not infected (5) Hypertension: Code(s): I10 - Essential (primary) hypertension Status: Acute Assessment and Plan: Blood pressures were reviewed and they have been stable. Continue antihypertensives and monitor daily. (6) Cardiomyopathy: Code(s): I42.9 - Cardiomyopathy, unspecified Status: Acute Assessment and Plan: Clinically compensated. Avoid overhydration. (7) Abnormal chest x-ray: Code(s): R93.89 - Abnormal findings on diagnostic imaging of other specified body structures Status: Acute Assessment and Plan: Bibasilar atelectasis versus pneumonia. Given productive cough she has been started on doxycycline as detailed above. Sputum culture ordered. She has chronic cough likely related to her COPD. Recently she was treated with steroid that the [facility] as well along with antibioti
[2021-08-12] MEDS: GLUCOSE ORAL GEL 15 GM OF GLUCSE IN 37.5 GM TUBE PO (20:11)
[2021-08-12] MEDS: ATORVASTATIN 20 MG TABLET PO (20:13)
[2021-08-12 20:15] LABS: Glucose Point of Care 54 mg/dl (65-105)
[2021-08-12 20:57] LABS: Glucose Point of Care 94 mg/dl (65-105)
[2021-08-12 23:48] LABS: Glucose Point of Care 121 mg/dl (65-105)
[2021-08-13] VITALS (18 sets, daily range): BP systolic 98–151; BP diastolic 55–73; PULSE 72–79; RESP 16–22; TEMP 36.3–36.8; O2SAT 90–100
[2021-08-13] MEDS: HYDROcodone/acetaminophen (*CRX) 5-325 MG TABLET 2 TAB PO ×3 (02:58→20:41)
[2021-08-13 03:14] LABS: Glucose Point of Care 68 mg/dl (65-105)
--- NOTE | 2021-08-13 03:15 | PC.NURSE ---
Glucose check 68, Dr Cunningham notified, new orders recieved.
[2021-08-13] MEDS: DEXTROSE 50% 25 GM/50 ML SYRINGE IV PUSH ×4 (03:20→16:34)
[2021-08-13 03:53] LABS: Glucose Point of Care 261 mg/dl (65-105)
[2021-08-13 07:56] LABS: Glucose Point of Care 77 mg/dl (65-105)
[2021-08-13] MEDS: ALBUTEROL SULFATE NEB 2.5 MG/0.5 ML INH INHALATION ×4 (08:02→20:01)
[2021-08-13] MEDS: IPRATROPIUM BR 0.02% INH SOLN 0.5 MG/2.5 ML VIAL INHALATION ×4 (08:02→20:02)
[2021-08-13] MEDS: ACIDOPHILUS/BULGARICUS CHEWABLE TABLET 1 TABLET PO (08:28)
[2021-08-13] MEDS: DOXYCYCLINE HYCLATE 100 MG TABLET PO ×2 (08:28→20:22)
[2021-08-13] MEDS: ASPIRIN 81 MG CHEWABLE TABLET PO (08:29)
[2021-08-13] MEDS: CLOPIDOGREL BISULFATE 75 MG TABLET PO (08:29)
[2021-08-13] MEDS: FUROSEMIDE 20 MG TABLET PO (08:29)
[2021-08-13] MEDS: SODIUM CHLORIDE 1 GM TABLET PO ×3 (08:29→16:34)
--- NOTE | 2021-08-13 09:45 | PCOTNOTE ---
Attempted to see patient for OT, patient requested therapist come back later. Patient agreeable to participating in ADLs later.
[2021-08-13 11:49] LABS: Glucose Point of Care 43 mg/dl (65-105)
[2021-08-13 12:05] LABS: Glucose Point of Care 124 mg/dl (65-105)
--- NOTE | 2021-08-13 16:12 | PM.IMPN ---
Progress Note: A&P Assessment and Plan (1) Unresponsiveness: Code(s): R41.89 - Other symptoms and signs involving cognitive functions and awareness Status: Acute Assessment and Plan: Found unresponsive 08/06/2021, at rehab post left leg amputation done at [facility]. Likely reason for unresponsiveness Increase in gabapentin and use of other sedated is/indication CT head and neck with couple different findings noted suggestive more of a metastatic lung cancer. Unclear etiology mass in the supra chiasmatic area. Await Neurology evaluation. (2) Hypoglycemia: Code(s): E16.2 - Hypoglycemia, unspecified Status: Acute Assessment and Plan: Blood sugar level low at 11 she is not a diabetic Etiology not clear. Medication her possibility. Order hypoglycemia panel, insulin level pending C-peptide pending She is not toxic appearing and gives no history to suggest active infection. However chest x-ray shows atelectasis versus pneumonia and with her productive cough with purulent sputum, started her on empiric doxycycline. Since receiving glucagon and dextrose, her glucose has remained stable. Continue to monitor Accu-Cheks Will check cortisol level and ACTH recently treated with steroids be secondary adrenal cortical insufficiency however no hyperkalemia noted does have hyponatremia C-peptide came back low beta hydroxybutyrate was elevated blood sugar has been stable noted after cosyntropin test her blood sugar raised all the way to 176. Cosyntropin test was positive suggestive of adrenal insufficiency likely secondary due to suppression hypothyroid pituitary adrenal axis from chronic intermittent steroid use. No reported iatrogenic insulin use from her med history and she has been in [place] [facility] for at least 2 weeks prior to this admission. Inadvertent insulin use is also seems less likely as her beta hydroxybutyrate level was elevated on admission Her blood sugars are doing okay and within normal limit S. The there is possibility of secondary mild adrenal insufficiency with recent scans there are multiple other issues will continue to monitor her blood sugar for now and not place on any steroid therapy She remains euglycemic (3) Chronic obstructive pulmonary disease: Code(s): J44.9 - Chronic obstructive pulmonary disease, unspecified Status: Acute Assessment and Plan: No acute exam sedation. Continue as needed nebulizers. 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 Continue aspirin and clopidogrel. History of fem-pop bypass graft left 2001 Wound care consult for ongoing wound from her recent left BKA and also has sacral decubitus ulcers which are not infected (5) Hypertension: Code(s): I10 - Essential (primary) hypertension Status: Acute Assessment and Plan: Blood pressures were reviewed and they have been stable. Continue antihypertensives and monitor daily. (6) Cardiomyopathy: Code(s): I42.9 - Cardiomyopathy, unspecified Status: Acute Assessment and Plan: Clinically compensated. Avoid overhydration. (7) Abnormal chest x-ray: Code(s): R93.89 - Abnormal findings on diagnostic imaging of other specified body structures Status: Acute Assessment and Plan: Bibasilar atelectasis versus pneumonia. Given productive cough she has been started on doxycycline as detailed above. Sputum culture ordered. She has chronic cough likely related to her COPD. Recently she was treated with steroid that the [facility] as well along with antibioti
[2021-08-13 16:35] LABS: Glucose Point of Care 55 mg/dl (65-105)
[2021-08-13 17:01] LABS: Glucose Point of Care 79 mg/dl (65-105)
[2021-08-13 18:20] LABS: Glucose Point of Care 130 mg/dl (65-105)
[2021-08-13] MEDS: ATORVASTATIN 20 MG TABLET PO (20:22)
[2021-08-13] MEDS: MELATONIN 3 MG TABLET PO (20:42)
[2021-08-14] VITALS (18 sets, daily range): BP systolic 133–137; BP diastolic 75–86; PULSE 70–84; RESP 17–20; TEMP 36.2–36.5; O2SAT 87–97
[2021-08-14 02:07] LABS: Glucose Point of Care 120 mg/dl (65-105)
[2021-08-14 02:07] LABS: Glucose Point of Care 100 mg/dl (65-105)
[2021-08-14 03:29] LABS: Glucose Point of Care 99 mg/dl (65-105)
[2021-08-14 07:45] LABS: Glucose Point of Care 55 mg/dl (65-105)
[2021-08-14] MEDS: DEXTROSE 50% 25 GM/50 ML SYRINGE IV PUSH ×2 (07:47→11:28)
[2021-08-14] MEDS: FUROSEMIDE 20 MG TABLET PO (07:53)
[2021-08-14] MEDS: ASPIRIN 81 MG CHEWABLE TABLET PO (07:53)
[2021-08-14] MEDS: CLOPIDOGREL BISULFATE 75 MG TABLET PO (07:53)
[2021-08-14] MEDS: SODIUM CHLORIDE 1 GM TABLET PO ×2 (07:53→11:35)
[2021-08-14] MEDS: ACIDOPHILUS/BULGARICUS CHEWABLE TABLET 1 TABLET PO (07:53)
[2021-08-14] MEDS: DOXYCYCLINE HYCLATE 100 MG TABLET PO (07:54)
[2021-08-14 08:14] LABS: Glucose Point of Care 224 mg/dl (65-105)
[2021-08-14] MEDS: ALBUTEROL SULFATE NEB 2.5 MG/0.5 ML INH INHALATION ×3 (08:16→16:45)
[2021-08-14] MEDS: IPRATROPIUM BR 0.02% INH SOLN 0.5 MG/2.5 ML VIAL INHALATION ×3 (08:16→16:45)
[2021-08-14 11:21] LABS: Glucose Point of Care 55 mg/dl (65-105)
[2021-08-14 11:50] LABS: Glucose Point of Care 112 mg/dl (65-105)
--- NOTE | 2021-08-14 12:33 | WPDNEUROPN ---
Progress Note: A&P Additional Plan 1generalized weakness with underlying malignancy 2status post left lower extremity amputation 3 MRI to be obtained to rule out the possibility of metastatic disease Time Spent With Patient Time with patient: 15 - 25 minutes Subjective Date/time seen: 08/14/21 12:33 75 years old lady admitted to the [facility] subsequent to being found unresponsive in addition to the ongoing history of is status post left lower extremity amputation [facility] with subsequent increasing phantom pain the reason for transfer was unusual grogginess with documented blood sugar of only 11 additionally she has ongoing history of coronary artery disease, congestive heart failure, hypertension, hyperlipidemia, and chronic obstructive pulmonary disease, and peripheral vascular disease since admission she has been stable and her most recent WBC 7.1 with hemoglobin 10.0 and a platelet count 416 INR is 1.1 and the blood sugar still fluct UA is negative she has been documented to have the nodule of soft tissue at the right tongue base raising the possibility of squamous cell carcinoma and had biopsy of the right supraclavicular lymph node ultrasound guided has documented poorly differentiated carcinoma Review of Systems Review of Systems: All systems reviewed & are unremarkable except as noted in HPI and below Exam Narrative: she remains awake alert cooperative in no obvious acute distress, head normocephalic with no cranial bruits, ear nose throat examination normal, neck is supple with no restriction of the range of motion, face symmetrical, heart regular with no murmur, lungs clear to auscultation abdomen is soft with no organomegaly and nontender with normal bowel sounds neurological is she is awake alert follows instructions fairly well his speech is mildly dysarthric but not dysphasic follows instructions very well pupils round regular feels the vision full extraocular movements full face symmetrical tongue midline motor examination revealed her to have generalized weakness but no focal motor deficit except the amputation of the left lower extremity reflexes sluggish and right plantar response is downgoing there is no evidence of gross cerebellar deficit in upper extremities Objective Data Vital Signs Vital Signs: Vital Signs - 24 hr 08/13/21 15:45 08/13/21 16:00 08/13/21 19:19 Temperature 36.8 C 36.3 C L Pulse Rate 74 77 77 Respiratory Rate 20 16 17 Blood Pressure 118/55 L 98/58 L Pulse Oximetry 98 95 08/13/21 20:00 08/13/21 20:02 08/13/21 20:04 Temperature Pulse Rate 78 77 Respiratory Rate 20 Blood Pressure Pulse Oximetry 92 08/13/21 20:11 08/13/21 21:00 08/13/21 23:08 Temperature 36.4 C L Pulse Rate 79 76 Respiratory Rate 20 18 Blood Pressure 117/69 Pulse Oximetry 90 100 08/14/21 00:00 08/14/21 03:42 08/14/21 04:00 Temperature 36.5 C Pulse Rate 73 70 72 Respiratory Rate 17 Blood Pressure 137/75 Pulse Oximetry 97 08/14/21 06:03 08/14/21 08:00 08/14/21 08:15 Temperature 36.2 C L Pulse Rate 72 75 Respiratory Rate 20 20 Blood Pressure 134/86 Pulse Oximetry 97 92 08/14/21 08:16 08/14/21 08:22 08/14/21 11:28 Temperature 36.3 C L Pulse Rate 78 81 Respiratory Rate 20 20 Blood Pressure 133/85 Pulse Oximetry 93 93 Intake/Output Intake/Output: Intake & Output 08/11/21 08/12/21 08/13/21 08/14/21 23:59 23:59 23:59 23:59 Intake Total 2987 304 3049 910 Output Total 850 1050 1100 600 Balance 860 -485 570 310 Meds/Results Medications: Active Medications Generic Name Dose Route Start Last Admin Trade Name Freq PRN Reason Stop Dose Admin Hydrocodone Bitart/Acetaminophen 1 tab 08/06/21 19:11 08/12/21 12:50 Hydrocodone/Acetaminophen (*Crx) 5-325 Mg Tablet PO 1 tab Q4H PRN Administration Pain Rated 4-6 Hydrocodone Bitart/Acetaminophen 2 tab 08/06/21 19:11 08/13/21 20:41 Hydrocodone/Acetaminophen (*Cr
--- NOTE | 2021-08-14 14:13 | HOMEO2EVAL ---
Evaluation was performed at [facility] Home Oxygen Evaluation RC: Home Oxygen (O2) Evaluation Start: 08/14/21 11:59 Freq: ONCE Status: Active Protocol: RPE Activity Type Activity Date Activity User E-Sign Co-Sign Detail Recorded Client Recorded Date Recorded By Document 08/14/21 13:45 ELISA RT_012 08/14/21 14:13 ELISA Document 08/14/21 13:47 ELISA RT_012 08/14/21 14:13 ELISA Document 08/14/21 13:50 ELISA RT_012 08/14/21 14:13 ELISA 08/14/21 08/14/21 08/14/21 13:45 13:47 13:50 Home O2 Evaluation Test Phase Resting Resting Resting Oxygen Delivery Room Air Nasal Cannula Nasal Cannula Oxygen Flow Rate (L/min) 1 2 Pulse Oximetry (90-100 %) 87 L 87 L 93 Pulse Rate (60-100 beats/min) 78 Home Oxygen Evaluation Comments PT REQUIRES 2 L HOME O2. DOES NOT AMBULATE Treatment Charges O2 Evaluation - Inpatient
--- NOTE | 2021-08-14 14:30 | PC.NURSE ---
On 08/14/21, the student, [Pilar Caputo], provided care and completed [facility] documentation on this patient. I have reviewed the student's documentation and agree with the findings.
--- NOTE | 2021-08-14 14:53 | PCRCNOTE ---
HOME O2 EVAL DONE AND SET UP WITH [facility]. [facility] IS IN ROOM FOR TRANSPORT BACK TO HOME IN [place]. [facility] WILL ENSURE PT HAS ALL REQUIRED O2 EQUIPMENT FOR TRANSPORT TO [facility]. [facility] TO [facility] [place] FOR FURTHER SERVICING IF NEEDED.
--- NOTE | 2021-08-14 15:05 | PM.DS ---
DS: Admitting Diagnosis Discharge Date 08/14/2021 Admitting Diagnosis Unresponsiveness DS: Discharge Diagnosis Discharge Diagnosis (1) Unresponsiveness: Code(s): R41.89 - Other symptoms and signs involving cognitive functions and awareness Status: Acute Assessment and Plan: Found unresponsive 08/06/2021, at rehab post left leg amputation done at [facility]. Likely reason for unresponsiveness Increase in gabapentin and use of other sedated is/indication CT head and neck with couple different findings noted suggestive more of a metastatic lung cancer. Unclear etiology mass in the supra chiasmatic area. Await Neurology evaluation. (2) Hypoglycemia: Code(s): E16.2 - Hypoglycemia, unspecified Status: Acute Assessment and Plan: Blood sugar level low at 11 she is not a diabetic Etiology not clear. Medication her possibility. Order hypoglycemia panel, insulin level pending C-peptide pending She is not toxic appearing and gives no history to suggest active infection. However chest x-ray shows atelectasis versus pneumonia and with her productive cough with purulent sputum, started her on empiric doxycycline. Since receiving glucagon and dextrose, her glucose has remained stable. Continue to monitor Accu-Cheks Will check cortisol level and ACTH recently treated with steroids be secondary adrenal cortical insufficiency however no hyperkalemia noted does have hyponatremia C-peptide came back low beta hydroxybutyrate was elevated blood sugar has been stable noted after cosyntropin test her blood sugar raised all the way to 176. Cosyntropin test was positive suggestive of adrenal insufficiency likely secondary due to suppression hypothyroid pituitary adrenal axis from chronic intermittent steroid use. No reported iatrogenic insulin use from her med history and she has been in [facility] for at least 2 weeks prior to this admission. Inadvertent insulin use is also seems less likely as her beta hydroxybutyrate level was elevated on admission Her blood sugars are doing okay and within normal limit S. The there is possibility of secondary mild adrenal insufficiency with recent scans there are multiple other issues will continue to monitor her blood sugar for now and not place on any steroid therapy She remains euglycemic (3) Chronic obstructive pulmonary disease: Code(s): J44.9 - Chronic obstructive pulmonary disease, unspecified Status: Acute Assessment and Plan: No acute exam sedation. Continue as needed nebulizers. 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 Continue aspirin and clopidogrel. History of fem-pop bypass graft left 2001 Wound care consult for ongoing wound from her recent left BKA and also has sacral decubitus ulcers which are not infected (5) Hypertension: Code(s): I10 - Essential (primary) hypertension Status: Acute Assessment and Plan: Blood pressures were reviewed and they have been stable. Continue antihypertensives and monitor daily. (6) Cardiomyopathy: Code(s): I42.9 - Cardiomyopathy, unspecified Status: Acute Assessment and Plan: Clinically compensated. Avoid overhydration. (7) Abnormal chest x-ray: Code(s): R93.89 - Abnormal findings on diagnostic imaging of other specified body structures Status: Acute Assessment and Plan: Bibasilar atelectasis versus pneumonia. Given productive cough she has been started on doxycycline as detailed above. Sputum culture ordered. She has chronic cough likely related to her COPD. Jc
[2021-08-14 16:20] LABS: Glucose Point of Care 72 mg/dl (65-105)
== END 2021-08-14 17:04 | disposition home health service (06) | DRG 628 ==
LOC: ANHED 09:31 → ANHIMU 13:23 → ANH2MED 08-13 14:36 → ANHIMU 08-15 09:46
PROVIDERS: Internal Medicine; Internal Medicine Hematology & Oncology; Physician Assistant; Admitting Provider Internal Medicine; Emergency Provider Emergency Medicine; PCP Family Medicine; Visit Provider Family Medicine
DX: E16.1 Other hypoglycemia (principal); L89.153 Pressure ulcer of sacral region, stage 3; I42.9 Cardiomyopathy, unspecified; J98.11 Atelectasis; E87.1 Hypo-osmolality and hyponatremia; E27.3 Drug-induced adrenocortical insufficiency; C34.11 Malignant neoplasm of upper lobe, right bronchus or lung; C34.32 Malignant neoplasm of lower lobe, left bronchus or lung; C79.72 Secondary malignant neoplasm of left adrenal gland; C77.0 Secondary and unspecified malignant neoplasm of lymph nodes of head, face and neck; C79.89 Secondary malignant neoplasm of other specified sites; T38.0X5A Adverse effect of glucocorticoids and synthetic analogues, initial encounter; Z79.52 Long term (current) use of systemic steroids; R40.4 Transient alteration of awareness; D64.89 Other specified anemias; J44.9 Chronic obstructive pulmonary disease, unspecified; H54.62 Unqualified visual loss, left eye, normal vision right eye; J40 Bronchitis, not specified as acute or chronic; Z89.512 Acquired absence of left leg below knee; I11.0 Hypertensive heart disease with heart failure; K14.8 Other diseases of tongue; I50.9 Heart failure, unspecified; I73.9 Peripheral vascular disease, unspecified; I25.10 Atherosclerotic heart disease of native coronary artery without angina pectoris; E78.5 Hyperlipidemia, unspecified; M48.061 Spinal stenosis, lumbar region without neurogenic claudication; I25.2 Old myocardial infarction; Z87.891 Personal history of nicotine dependence; Z98.42 Cataract extraction status, left eye; Z98.41 Cataract extraction status, right eye
CPT/HCPCS: 36415; 38505; 51701; 70496; 70498; 71045; 71260; 74177; 76942; 80048; 80053; 80377; 81001; 82010; 82024; 82533; 82607; 82728; 82746; 82948; 83525; 83540; 83550; 83615; 83735; 84206; 84439; 84443; 84681; 85025; 85027; 85610; 85652; 87070; 87205; 88305; 88342; 93005; 93306; 94618; 94640; 96365; 96366; 97110; 97161; 97166; 97530; 97535; 99285; A9270; G0378; J0834; J7040; Q9967